=== PATIENT | female | born 1960 | race Caucasian/White ===

== ENCOUNTER 2017-04-20 13:03 | Inpatient (IN) | payer OTHER ==
[2017-04-20] MEDS ORDERED: Sodium Chloride 0.9% 500 ML IV STA ×2 (15:36→19:29)
--- NOTE | 2017-04-20 15:42 | ED PDOC ---
Arrival/HPI - General Time Seen by Provider: 04/20/17 15:35 Historian: Patient - History of Present Illness Narrative History of Present Illness (Text): 04/20/17 15:36 Modesto Sierra is a 56 year old male who presents to the emergency department complaining of RUQ abdominal pain for five days. Patient notes that she has experienced intermittent vomiting that resolved but came back today. Patient went to see her PMD , Dr. Vega, and was prescribed Bentyl to little relief. At present, patient cannot tolerate food. Patient notes that her last bowel movement was more loose than normal. Patient denies any fever or any other complaint at this time. PMD: DR. Vega Time/Duration: < week Symptom Onset: Gradual Symptom Course: Unchanged Activities at Onset: Light Context: Home Past Medical History - Provider Review Nursing Documentation Reviewed: Yes Family/Social History - Physician Review Nursing Documentation Reviewed: Yes Family/Social History: No Known Family HX Allergies/Home Meds Allergies/Adverse Reactions: Allergies No Known Allergies Allergy (Unverified 04/20/17 15:36) Review of Systems - Physician Review All systems were reviewed & negative as marked: Yes - Review of Systems Constitutional: absent: Fevers, Night Sweats Eyes: absent: Vision Changes ENT: absent: Hearing Changes Respiratory: absent: SOB, Cough Cardiovascular: absent: Chest Pain Gastrointestinal: Abdominal Pain (RUQ), Vomiting Musculoskeletal: absent: Arthralgias Skin: absent: Rash, Pruritis Neurological: absent: Headache Endocrine: absent: Diaphoresis Hemo/Lymphatic: absent: Adenopathy Psychiatric: absent: Anxiety Physical Exam Vital Signs Reviewed: Yes Vital Signs Temp Pulse Resp BP Pulse Ox 04/20/17 16:03 98.2 F 86 18 126/69 98 - Systems Exam Head: Present: Atraumatic, Normocephalic Pupils: Present: PERRL Extroacular Muscles: Present: EOMI Conjunctiva: Present: Normal Mouth: Present: Moist Mucous Membranes Neck: Present: Normal Range of Motion Respiratory/Chest: Present: Clear to Auscultation, Good Air Exchange. No: Respiratory Distress, Accessory Muscle Use Cardiovascular: Present: Regular Rate and Rhythm, Normal S1, S2. No: Murmurs Abdomen: Present: Tenderness (RUQ) Back: Present: Normal Inspection Upper Extremity: Present: Normal Inspection. No: Cyanosis, Edema Lower Extremity: Present: Normal Inspection. No: Edema Neurological: Present: GCS=15, CN II-XII Intact, Speech Normal Skin: Present: Warm, Dry, Normal Color. No: Rashes Psychiatric: Present: Alert, Oriented x 3, Normal Insight, Normal Concentration Medical Decision Making ED Course and Treatment: 04/20/17 15:43 Impression: 56 year old male complaining of RUQ abdominal pain for five days. Differential Diagnosis included but are not limited to: Plan: -- Abdominal US -- Urinalysis -- Labs -- Toradol, Zofran, and IV Fluids -- Reassess and disposition Progress Notes: 04/20/17 16:37 EKG shows NSR at 95bpm with normal intervals and no st changes 04/20/17 17:24 Cholelithiasis. Gallbladder sludge. Pericholecystic edema/wall thickening. Negative sonographic Joseph's sign as assessed by the metal pattern maker. Correlate clinically for possibility of cholecystitis. Echogenic liver may be seen in setting of hepatic parenchymal disease or fatty infiltration. 04/20/17 18:32 Persistent pain and vomiting. Gen sx consult. Admit to medicine. General surgery resident aware of patient 04/20/17 20:12 Patient admitted to [facility] in error. Dr. Vasquez at bedside and requesting change attending to Dr. Geraldo Canales - Lab Interpretations Lab Results: 04/20/17 16:20 04/20/17 16:20 Lab Results 04/20/17 17:28: Urine Color Yellow, Urine Appearance Clear, Urine pH 6.5, Ur Specific [place] <= 1.005, Urine Protein Negative, Urine Glucose (UA) Negative, Urine Ketones Negative, Urine Blood Negative, Urine Nitrate Negative, Urine Bilirubin Negative, Urine Urobilinogen 0.2, Ur Leukocyte Esterase Trace H, Urine RBC Negative, Urine WBC 0 - 2, Ur Epithelial Cells 3 - 4, Urine Bacteria Few 04/20/17 16:20: Sodium 141, Potassium 3.9, Chloride 106, Carbon Dioxide 22, Anion Gap 17, BUN 9, Creatinine 0.8, Est GFR ( Amer) > 60, Est GFR (Non- Af Amer) > 60, Random Glucose 144 H, Calcium 9.4, Total Bilirubin 0.7, AST 28, ALT 47, Alkaline Phosphatase 101, Total Protein 7.9, Albumin 4.1, Globulin 3.8, Albumin/Globulin Ratio 1.1, Lipase 32 04/20/17 16:20: WBC 13.8 H, RBC 4.87, Hgb 13.2, Hct 40.0, MCV 82.1, MCH 27.1, MCHC 33.0, RDW 13.6, Plt Count 238, MPV 8.8, Gran % 82.0 H, Lymph % (Auto) 10.1 L, [place] % (Auto) 7.8 H, Eos % (Auto) 0.0 L, Baso % (Auto) 0.1, Gran # 11.29 H, Lymph # (Auto) 1.4, [place] # (Auto) 1.1 H, Eos # (Auto) 0.0, Baso # (Auto) 0.02 - RAD Interpretation Radiology Orders: 04/20/17 15:36 ABDOMEN COMPLETE [US] Stat - Medication Orders Current Medication Orders: Sodium Chloride (Sodium Chloride 0.9%) 100 mls @ 50 mls/hr IV .Q2H KATY Stop: 04/21/17 00:14 Morphine Sulfate (Morphine) 2 mg IVP Q4 PRN PRN Reason: Pain, severe (8-10) Discontinued Medications Sodium Chloride (Sodium Chloride 0.9%) 500 mls @ 999 mls/hr IV .Q31M STA Stop: 04/20/17 16:06 Last Admin: 04/20/17 15:51 Dose: 999 mls/hr eMAR Start Stop Document 04/20/17 15:51 EQ (Rec: 04/20/17 15:51 EQ [id number]) Intravenous Solution Start Date 04/20/17 Start Time 15:51 Sodium Chloride (Sodium Chloride 0.9%) 500 mls @ 999 mls/hr IV .Q31M STA Stop: 04/20/17 19:59 Ketorolac Tromethamine (Toradol) 30 mg IVP STAT STA Stop: 04/20/17 15:37 Last Admin: 04/20/17 15:50 Dose: 30 mg MAR Pain Assessment Document 04/20/17 15:50 EQ (Rec: 04/20/17 15:51 EQ [id number]) Pain Reassessment Is this a pain reassessment? No Sleep Is patient sleeping during reassessment? No Presence of Pain Presence of Pain Yes Pain Scale Used Pain Scale Used Numeric IVP Administration Document 04/20/17 15:50 EQ (Rec: 04/20/17 15:51 EQ [id number]) Charges for Administration # of IVP Administrations 1 Metoclopramide HCl (Reglan) 10 mg IVP STAT STA Stop: 04/20/17 19:30 Morphine Sulfate (Morphine) 4 mg IVP STAT STA Stop: 04/20/17 19:30 Ondansetron HCl (Zofran Inj) 4 mg IVP STAT STA Stop: 04/20/17 15:37 Last Admin: 04/20/17 15:51 Dose: 4 mg IVP Administration Document 04/20/17 15:51 EQ (Rec: 04/20/17 15:51 EQ [id number]) Charges for Administration # of IVP Administrations 1 - Scribe Statement The provider has reviewed the documentation as recorded by the Scribemilio Viera Provider Scribe Attestation: All medical record entries made by the Scribe were at my direction and personally dictated by me. I have reviewed the chart and agree that the record accurately reflects my personal performance of the history, physical exam, medical decision making, and the department course for this patient. I have also personally directed, reviewed, and agree with the discharge instructions and disposition. Disposition/Present on Arrival - Present on Arrival Any Indicators Present on Arrival: No - Disposition Have Diagnosis and Disposition been Completed?: Yes Diagnosis: Cholecystitis Disposition: HOSPITALIZED Disposition Time: 17:28 Patient Plan: Observation Patient Problems: Current Active Problems Problem Status Onset Cholecystitis Acute Condition: FAIR
[2017-04-20 16:28] LABS: BASO # 0.02 K/mm3 (0.0-2.0); BASO % 0.1 % (0.0-3.0); GRAN # 11.29 (1.4-6.5); HEMOGLOBIN 13.2 g/dL (12.0-16.0); LYMPH # 1.4 (1.2-3.4); LYMPH % 10.1 % (22.0-35.0); MEAN CELL VOLUME 82.1 fl (80.0-105.0); MEAN CORPUSCULAR HEMOGLOBIN 27.1 pg (25.0-35.0); MEAN PLATELET VOLUME 8.8 fl (7.0-11.0); MONO # 1.1 (0.1-0.6); MONO % 7.8 % (1.0-6.0); RBC 4.87 10^6/uL (3.5-6.1); RED CELL DISTRIBUTION WIDTH 13.6 % (11.5-14.5); WHITE BLOOD COUNT 13.8 10^3/ul (4.5-11.0)
[2017-04-20 16:39] LABS: ALB/GLOB RATIO 1.1 (1.1-1.8); ALBUMIN 4.1 g/dL (3.0-4.8); ALT/SGPT 47 U/L (7-56); AST/SGOT 28 U/L (14-36); BLOOD UREA NITROGEN 9 mg/dL (7-21); CALCIUM 9.4 mg/dL (8.4-10.5); GFR AFRICAN-AMERICAN > 60; GFR NON-AFRICAN AMERICAN > 60; LIPASE 32 U/L (23-300)
--- NOTE | 2017-04-20 17:25 | US ---
HISTORY: RUQ pain COMPARISON: None available. TECHNIQUE: Sonographic evaluation of the abdomen. FINDINGS: LIVER: Measures 17.0 cm in sagittal dimension. Echogenic liver may be seen in setting of hepatic parenchymal disease or fatty infiltration. No focal hepatic mass identified. The main portal vein appears patent with normal directional flow. No intrahepatic bile duct dilatation. GALLBLADDER: Gallstones. Pericholecystic edema/gallbladder-wall thickening measuring approximately 4 mm. Negative sonographic Joseph's sign as assessed by the livestock nutritionist. COMMON BILE DUCT: Measures 5 mm. PANCREAS: Not well visualized. RIGHT KIDNEY: Measures 9.7 x 4.1 x 3.9 cm. No obstructing calculus or hydronephrosis identified. LEFT KIDNEY: Measures 9.6 x 5.4 x 5.2 cm. No obstructing calculus or hydronephrosis identified. SPLEEN: Measures approximately 9.0 cm. AORTA: Limited views appear unremarkable. IVC: Limited views appear unremarkable. OTHER FINDINGS: None. IMPRESSION: Cholelithiasis. Gallbladder sludge. Pericholecystic edema/wall thickening. Negative sonographic Joseph's sign as assessed by the livestock nutritionist. Correlate clinically for possibility of cholecystitis. Echogenic liver may be seen in setting of hepatic parenchymal disease or fatty infiltration.
[2017-04-20 17:48] LABS: PH,URINE 6.5 (4.7-8.0); URINE BILIRUBIN NEGATIVE (NEGATIVE); URINE BLOOD NEGATIVE (NEGATIVE); URINE GLUCOSE (UA) NEGATIVE (NEGATIVE); URINE LEUKOCYTE ESTERASE TRACE Leu/uL (NEGATIVE); URINE NITRATE NEGATIVE (NEGATIVE); URINE PROTEIN NEGATIVE mg/dL (<30 mg/dL); URINE UROBILINOGEN 0.2 E.U./dL (<1 E.U./dL)
[2017-04-20 17:51] LABS: URINE APPEARANCE CLEAR (CLEAR); URINE COLOR YELLOW (YELLOW)
[2017-04-20 17:59] LABS: URINE BACTERIA FEW (NEG); URINE RBC NEGATIVE /hpf (0-2); URINE WBC 0 - 2 /hpf (0-6)
[2017-04-20] MEDS ORDERED: Morphine 4 mg/ml ISec IVP STA (19:29)
[2017-04-20] MEDS ORDERED: Morphine 2 mg/ml ISec IVP PRN (20:02)
[2017-04-20] MEDS ORDERED: Sodium Chloride 0.9% 100 ML IV SCH (20:15)
--- NOTE | 2017-04-20 21:01 | CP.PCM.CON ---
History of Present Illness - History of Present Illness History of Present Illness: Surgery Consult note. Dr. Salazar 56yo F with PMHx of Arthritis here for evaluation of abdominal pain. Pain is described as sharp, located in the RUQ, does not radiate, waxing and waning for the past 4 days. She denies ever having symptoms such as this before. She went to see her PMD, Dr. Isidoro Tidwell, and was giving Mylanta with minimal relief. She also took some Tylenol and Dayquil this morning with no relief. She started having nausea off and on since the onset of RUQ pain which is associated with food intake. She does report one episode of emesis (non-bloody, non-bilious) today morning soon after she ate breakfast and had some milk tea. Reports Nausea has improved since receiving medications in the ER. Does report feeling feverish at home this morning, denies any current fevers or chills. No CP/SOB. Last food intake was a few hours ago, (lentils and rice, bland). Does report a loose BM earlier today. No melena, no blood. No urinary complaints. Denies any sick contacts. PMD: Isidoro Tidwell (at [facility] [place]) PMHx: Arthritis PSHx: Denies Family Hx: Sister - DM Social Hx: Denies tobacco use, Denies ETOH use, Denies illicit drug use. Lives in [place] with family NKDA Review of Systems - Review of Systems All systems: reviewed and no additional remarkable complaints except - Constitutional Constitutional: Fever. absent: Chills, Headache - Cardiovascular Cardiovascular: absent: Chest Pain, Dyspnea - Respiratory Respiratory: absent: Dyspnea - Gastrointestinal Gastrointestinal: Abdominal Pain, Loose Stools, Nausea, Vomiting. absent: Diarrhea, Melena - Genitourinary Genitourinary: absent: Change in Urinary Stream, Difficulty Urinating, Dysuria - Neurological Neurological: absent: Confusion, Dizziness, Focal Weakness, Headaches Past Patient History - Past Social History Smoking Status: Never Smoked Alcohol: None Drugs: Denies Home Situation {Lives}: With Family - PSYCHIATRIC Hx Substance Use: No - SURGICAL HISTORY Hx Surgeries: No - ANESTHESIA Hx Anesthesia: No Hx Anesthesia Reactions: No Hx Malignant Hyperthermia: No Meds Allergies/Adverse Reactions: Allergies Allergy/AdvReac Type Severity Reaction Status Date / Time No Known Allergies Allergy Unverified 04/20/17 15:36 - Medications Medications: Current Medications Morphine Sulfate (Morphine) 2 mg IVP Q4 PRN PRN Reason: Pain, severe (8-10) Physical Exam - Constitutional Appears: Well, Non-toxic, No Acute Distress - Head Exam Head Exam: ATRAUMATIC, NORMAL INSPECTION, NORMOCEPHALIC - Eye Exam Eye Exam: EOMI, Normal appearance - ENT Exam ENT Exam: Mucous Membranes Moist - Respiratory Exam Respiratory Exam: NORMAL BREATHING PATTERN. absent: Accessory Muscle Use, Respiratory Distress - Cardiovascular Exam Cardiovascular Exam: RRR. absent: JVD - GI/Abdominal Exam GI & Abdominal Exam: Soft. absent: Distended, Firm, Guarding, Rebound, Rigid Additional comments: RUQ tenderness to palpation. Joseph's sign positive. No rebound, no guarding. No visible abdominal scars. - Extremities Exam Extremities exam: Positive for: normal inspection. Negative for: calf tenderness - Neurological Exam Neurological exam: Alert, Oriented x3 - Psychiatric Exam Psychiatric exam: Normal Affect, Normal Mood - Skin Skin Exam: Dry, Intact, Normal Color, Warm Results - Vital Signs Recent Vital Signs: Last Vital Signs Temp 98.2 F 04/20/17 16:03 Pulse 86 04/20/17 16:03 Resp 18 04/20/17 16:03 BP 126/69 04/20/17 16:03 Pulse Ox 98 04/20/17 16:03 - Labs Result Diagrams: 04/20/17 16:20 04/20/17 16:20 Assessment & Plan - Assessment and Plan (Free Text) Assessment: 56yo F with possible cholecystitis - Abd US noted - Leukocytosis. Afebrile - Vital signs stable - Negative UA noted Plan: - NPO except meds - IVF - IV Abx: Rocephin, Flagyl - Pain management - Anti-emetics - AM labs - Pre-op studies - We will plan for OR and make further recs as we follow the patient clinically Further recs as per Dr. Martin Hammonds PGY1 surgery pager: [phone]
--- NOTE | 2017-04-20 21:10 | CP.PCM.HP ---
<Win Valdes - Last Filed: 04/21/17 00:36> History of Present Illness - History of Present Illness History of Present Illness: cc: RUQ abdominal pain HPI: Patient is a 56yo female with history of arthritis and vitamin D deficiency that presents c/o right upper quadrant abdominal pain for the past 5 days. Patient reported that she had never experienced pain like this in the past. She states that the pain has been associated with intermittent nausea and vomiting of ingested food. She reports having been to her PMD, Dr. Isidoro Ashby who instructed her to take mylanta however that provided minimal relief. She decided to come to the emergency room due to the pain which is exacerbated by food. 12point ROS as per HPI above otherwise negative PMHx: arthritis, vitamin d deficiency PSHx: denies Allergies: NKDA Medications: Naproxen occasionally for arthritic pain (~2x per month), Vitamin D supplements Social Hx: denies tobacco, alcohol and illicit drug use; lives with her family Family Hx: Sister: DM PMD: Dr. Isidoro Ashby Present on Admission - Present on Admission Any Indicators Present on Admission: No Past Patient History - Past Social History Smoking Status: Never Smoked - PSYCHIATRIC Hx Substance Use: No - SURGICAL HISTORY Hx Surgeries: No - ANESTHESIA Hx Anesthesia: No Hx Anesthesia Reactions: No Hx Malignant Hyperthermia: No Meds Allergies/Adverse Reactions: Allergies Allergy/AdvReac Type Severity Reaction Status Date / Time No Known Allergies Allergy Unverified 04/20/17 15:36 Physical Exam - Constitutional Appears: No Acute Distress - Head Exam Head Exam: ATRAUMATIC, NORMAL INSPECTION, NORMOCEPHALIC - Eye Exam Eye Exam: EOMI, PERRL - ENT Exam ENT Exam: Mucous Membranes Moist - Neck Exam Neck exam: Positive for: Normal Inspection - Respiratory Exam Respiratory Exam: Clear to Auscultation Bilateral. absent: Rales, Rhonchi, Wheezes - Cardiovascular Exam Cardiovascular Exam: RRR, +S1, +S2. absent: Gallop, Rubs, Systolic Murmur - GI/Abdominal Exam GI & Abdominal Exam: Soft, Tenderness (RUQ tenderness to palpation). absent: Distended, Firm, Guarding, Rebound, Rigid - Extremities Exam Extremities exam: Positive for: normal inspection. Negative for: calf tenderness, pedal edema, tenderness - Neurological Exam Neurological exam: Alert, CN II-XII Intact, Oriented x3 - Psychiatric Exam Psychiatric exam: Normal Affect, Normal Mood - Skin Skin Exam: Dry, Intact, Normal Color, Warm Results - Vital Signs Recent Vital Signs: Last Vital Signs Temp 98.2 F 04/20/17 16:03 Pulse 86 04/20/17 16:03 Resp 18 04/20/17 16:03 BP 126/69 04/20/17 16:03 Pulse Ox 98 04/20/17 16:03 - Labs Result Diagrams: 04/20/17 16:20 04/20/17 16:20 Assessment & Plan - Assessment and Plan (Free Text) Plan: 56yo female with history of arthritis and vitamin d deficiency presents c/o RUQ abdominal pain associated with nausea/vomiting for past 5 days likely secondary to acute cholecystitis vs biliary colic 1. RUQ abdominal pain secondary to acute cholecystitis vs biliary colic -EKG revealed normal sinus rhythm with no acute ST-T wave changes -Abdominal US revealed cholelithiasis, gallbladder sludge, pericholecystic edema /wall thickening; see full report -afebrile, leukocytosis of 13.8 -HIDA scan pending -Troponin negative x1, repeat pending in AM -Started on rocephin and flagyl for antibiotic coverage -Zofran PRN for nausea/vomiting -Morphine 2q4 PRN for pain control -IVF hydration with normal saline -Surgery consulted - Dr. Salazar -GI consulted - Dr. Dickerson 2. GI/DVT prophylaxis -Protonix/SCD's Patient seen and case discussed/reviewed with attending, Dr. Rojo <Simon Rojo Q - Last Filed: 04/21/17 01:02> Results - Vital Signs Recent Vital Signs: Last Vital Signs Temp 98.2 F 04/20/17 16:03 Pulse 86 04/20/17 21:29 Resp 18 04/20/17 21:29 BP 121/65 04/20/17 21:29 Pulse Ox 98 04/20/17 21:29 - Labs Result Diagrams: 04/20/17 16:20 04/20/17 16:20 Labs: Laboratory Results - last 24 hr 04/20/17 23:05 Troponin I < 0.01 Attending/Attestation - Attestation I have personally seen and examined this patient.: Yes I have fully participated in the care of the patient.: Yes I have reviewed all pertinent clinical information: Yes Notes (Text): 04/21/17 01:01 I agree with the above mentioned note and exam by the resident with the addition /exception of the followin56 y/o patient with a PMHx Arthritis and Vit D deficiency presented to the ED with the complaint of abdominal pain coupled with nausea and vomiting for the past 4-5 days. U/S of the abdomen showed gallbladder wall thickening with surrounding edema, combined with her clinical exam is likely secondary to acute cholecystitis. Case discussed with the surgical device sales representative who stated the patient will be planned for surgery during this hospitalization. Will keep her NPO, IVF, anti- emetics and IV Morphine prn pain for now.
[2017-04-20] MEDS: Sodium Chloride 0.9% 1,000 ML IV SCH (23:02)
[2017-04-20] MEDS: metroNIDAZOLE IV 500 mg/100 ml 500 MG/100 ML BAG IVPB SCH (23:23)
[2017-04-21] MEDS ORDERED: Pneumococcal 23-Valent Vaccine IM ONE (02:34)
[2017-04-21] MEDS ORDERED: Influenza Vaccine 60 mcg/0.5 mL SYR (4YR UP) IM ONE (02:34)
[2017-04-21] MEDS: metroNIDAZOLE IV 500 mg/100 ml 500 MG/100 ML BAG IVPB SCH ×3 (05:35→22:16)
[2017-04-21 06:34] LABS: BASO # 0.03 K/mm3 (0.0-2.0); BASO % 0.3 % (0.0-3.0); EOS % 0.1 % (1.5-5.0); GRAN # 7.82 (1.4-6.5); HEMOGLOBIN 11.1 g/dL (12.0-16.0); LYMPH # 1.5 (1.2-3.4); LYMPH % 14.1 % (22.0-35.0); MEAN CELL VOLUME 83.5 fl (80.0-105.0); MEAN CORPUSCULAR HEMOGLOBIN 26.2 pg (25.0-35.0); MEAN CORPUSCULAR HGB CONC 31.4 g/dl (31.0-37.0); MEAN PLATELET VOLUME 8.7 fl (7.0-11.0); MONO % 9.5 % (1.0-6.0); RBC 4.24 10^6/uL (3.5-6.1); WHITE BLOOD COUNT 10.3 10^3/ul (4.5-11.0)
[2017-04-21 07:12] LABS: INR 1.2 (0.93-1.08); PARTIAL THROMBOPLASTIN TIME 27.5 Seconds (25.1-36.5); PROTHROMBIN TIME 13.9 SECONDS (9.4-12.5)
[2017-04-21 07:32] LABS: ALT/SGPT 31 U/L (7-56); AST/SGOT 19 U/L (14-36); BLOOD UREA NITROGEN 8 mg/dL (7-21); CALCIUM 8.3 mg/dL (8.4-10.5); GFR AFRICAN-AMERICAN > 60; GFR NON-AFRICAN AMERICAN > 60
--- NOTE | 2017-04-21 08:24 | RAD ---
HISTORY: Preop COMPARISON: No prior. FINDINGS: LUNGS: No active pulmonary disease. PLEURA: No significant pleural effusion identified, no pneumothorax apparent. CARDIOVASCULAR: Normal. OSSEOUS STRUCTURES: No significant abnormalities. VISUALIZED UPPER ABDOMEN: Normal. OTHER FINDINGS: None. IMPRESSION: No active disease.
--- NOTE | 2017-04-21 10:01 | CARD ---
APPROVED REPORT EKG Measurement Heart [id number] <Conclusion> Normal sinus rhythm RVCD Normal ECG
[2017-04-21 11:16] LABS: TROPONIN I < 0.01 ng/mL
[2017-04-21] MEDS: cefTRIAXone 1 gm 1 GM/100 ML BAG IVPB SCH (11:52)
[2017-04-21] MEDS: Sodium Chloride 0.9% 1,000 ML IV SCH (13:28)
--- NOTE | 2017-04-21 15:38 | CP.PCM.PN ---
<Livia Rosales - Last Filed: 04/21/17 15:34> Subjective - Date & Time of Evaluation Date of Evaluation: 04/21/17 Time of Evaluation: 15:35 - Subjective Subjective: Livia Rosales, PGY1, Medicine Progress Note for Dr Polanco: Patient seen and examined at bedside. Pt admitted overnight for RUQ pain, found to be from gallstones and acute cholecystitis. Reports mild RUQ abdominal pain, improved since admission. Denies fever, chills, nausea, vomiting, yellowing of skin, abdominal pain. Objective - Vital Signs/Intake and Output Vital Signs (last 24 hours): Temp Pulse Resp BP Pulse Ox 99 F 84 20 102/60 98 04/21/17 08:44 04/21/17 08:44 04/21/17 08:44 04/21/17 08:44 04/21/17 08:44 Intake and Output: 04/21/17 04/21/17 06:59 18:59 Intake Total 900 Balance 900 - Medications Medications: Current Medications Metronidazole (Flagyl) 500 mg in 100 mls @ 100 mls/hr IVPB Q8 KATY PRN Reason: Protocol Last Admin: 04/21/17 13:28 Dose: 100 mls/hr Ceftriaxone Sodium (Rocephin 1 Gram Ivpb) 1 gm in 100 mls @ 100 mls/hr IVPB DAILY KATY PRN Reason: Protocol Last Admin: 04/21/17 11:52 Dose: 100 mls/hr Sodium Chloride (Sodium Chloride 0.9%) 1,000 mls @ 120 mls/hr IV .Q8H20M [facility] Last Admin: 04/21/17 13:28 Dose: 120 mls/hr Morphine Sulfate (Morphine) 2 mg IVP Q4 PRN PRN Reason: Pain, severe (8-10) Ondansetron HCl (Zofran Inj) 4 mg IVP Q6H PRN PRN Reason: Nausea/Vomiting Pantoprazole Sodium (Protonix Inj) 40 mg IVP DAILY [facility] Last Admin: 04/21/17 11:52 Dose: 40 mg - Labs Labs: 04/21/17 05:30 04/21/17 05:30 PT 13.9 SECONDS (9.4-12.5) H 04/21/17 05:30 INR 1.20 (0.93-1.08) H 04/21/17 05:30 APTT 27.5 Seconds (25.1-36.5) 04/21/17 05:30 - Constitutional Appears: Non-toxic, No Acute Distress - Head Exam Head Exam: ATRAUMATIC, NORMOCEPHALIC - Eye Exam Eye Exam: EOMI, PERRL. absent: Conjunctival injection, Scleral icterus Pupil Exam: NORMAL ACCOMODATION, PERRL. absent: Fixed, Irregular, Unequal - ENT Exam ENT Exam: Mucous Membranes Moist - Neck Exam Neck Exam: Full ROM - Respiratory Exam Respiratory Exam: Clear to Ausculation Bilateral, NORMAL BREATHING PATTERN. absent: Accessory Muscle Use, Chest Wall Tenderness, Rales, Rhonchi, Wheezes, Respiratory Distress - Cardiovascular Exam Cardiovascular Exam: +S1, +S2. absent: Tachycardia, Murmur - GI/Abdominal Exam GI & Abdominal Exam: Soft, Tenderness (Mild RUQ tenderness), Normal Bowel Sounds. absent: Distended, Mass, Organomegaly, Rebound - Extremities Exam Extremities Exam: Normal Inspection. absent: Calf Tenderness, Pedal Edema - Back Exam Back Exam: NORMAL INSPECTION - Neurological Exam Neurological Exam: Alert, Awake, Oriented x3 - Psychiatric Exam Psychiatric exam: Normal Affect, Normal Mood - Skin Skin Exam: Dry, Normal Color, Warm Assessment and Plan - Assessment and Plan (Free Text) Assessment: 56 yo female with history of arthritis and vitamin d deficiency presents for RUQ abdominal pain associated with nausea/vomiting for past 5 days likely secondary to acute cholecystitis vs biliary colic. Scheduled for lap [place], likely tomorrow. Will keep NPO after midnight: 1. RUQ abdominal pain: secondary to acute cholecystitis vs biliary colic -EKG revealed normal sinus rhythm with no acute ST-T wave changes -Abdominal US revealed cholelithiasis, gallbladder sludge, pericholecystic edema /wall thickening; see full report -afebrile, leukocytosis of 13.8 -Troponin negative x2 -C/w rocephin and flagyl for antibiotic coverage -Zofran PRN for nausea/vomiting -Morphine 2q4 PRN for pain control -IVF hydration with normal saline -Surgery consulted - Dr. Salazar. Appreciate recs. 2. GI/DVT prophylaxis -Protonix/SCD's Patient seen and case discussed/reviewed with attending, Dr Polanco. <Dony Polanco - Last Filed: 04/21/17 16:40> Objective - Vital Signs/Intake and Output Vital Signs (last 24 hours): Temp Pulse Resp BP Pulse Ox 99 F 84 20 102/60 98 04/21/17 08:44 04/21/17 08:44 04/21/17 08:44 04/21/17 08:44 04/21/17 08:44 Intake and Output: 04/21/17 04/21/17 06:59 18:59 Intake Total 900 Balance 900 - Medications Medications: Current Medications Metronidazole (Flagyl) 500 mg in 100 mls @ 100 mls/hr IVPB Q8 KATY PRN Reason: Protocol Last Admin: 04/21/17 13:28 Dose: 100 mls/hr Ceftriaxone Sodium (Rocephin 1 Gram Ivpb) 1 gm in 100 mls @ 100 mls/hr IVPB DAILY [facility] PRN Reason: Protocol Last Admin: 04/21/17 11:52 Dose: 100 mls/hr Sodium Chloride (Sodium Chloride 0.9%) 1,000 mls @ 120 mls/hr IV .Q8H20M [facility] Last Admin: 04/21/17 13:28 Dose: 120 mls/hr Morphine Sulfate (Morphine) 2 mg IVP Q4 PRN PRN Reason: Pain, severe (8-10) Ondansetron HCl (Zofran Inj) 4 mg IVP Q6H PRN PRN Reason: Nausea/Vomiting Pantoprazole Sodium (Protonix Inj) 40 mg IVP DAILY [facility] Last Admin: 04/21/17 11:52 Dose: 40 mg - Labs Labs: 04/21/17 05:30 04/21/17 05:30 PT 13.9 SECONDS (9.4-12.5) H 04/21/17 05:30 INR 1.20 (0.93-1.08) H 04/21/17 05:30 APTT 27.5 Seconds (25.1-36.5) 04/21/17 05:30 Attending/Attestation - Attestation I have personally seen and examined this patient.: Yes I have fully participated in the care of the patient.: Yes I have reviewed all pertinent clinical information, including history, physical exam and plan: Yes Notes (Text): 04/21/17 16:36 56 year old female who presented with RUQ pain. Found to have cholelithiasis, possible acute cholecystitis. Continue with iv fluids, analgesics, antiemetics and antibiotics. Case was discussed with surgery; plan is for lap [place] tomorrow. Family is at bedside and questions were answered. Dony Polanco MD Hospitalist.
--- NOTE | 2017-04-21 19:40 | CP.PCM.PN ---
Subjective - Date & Time of Evaluation Date of Evaluation: 04/21/17 Time of Evaluation: 06:40 - Subjective Subjective: Patient seen and examined this AM. Complains of some persistent pain medication but denies any nausea or vomiting, fevers, or chills. Objective - Vital Signs/Intake and Output Vital Signs (last 24 hours): Temp Pulse Resp BP Pulse Ox 98.7 F 76 18 110/55 L 98 04/21/17 17:08 04/21/17 17:08 04/21/17 17:08 04/21/17 17:08 04/21/17 17:08 - Medications Medications: Current Medications Metronidazole (Flagyl) 500 mg in 100 mls @ 100 mls/hr IVPB Q8 [facility] PRN Reason: Protocol Last Admin: 04/21/17 13:28 Dose: 100 mls/hr Ceftriaxone Sodium (Rocephin 1 Gram Ivpb) 1 gm in 100 mls @ 100 mls/hr IVPB DAILY [facility] PRN Reason: Protocol Last Admin: 04/21/17 11:52 Dose: 100 mls/hr Sodium Chloride (Sodium Chloride 0.9%) 1,000 mls @ 120 mls/hr IV .Q8H20M [facility] Last Admin: 04/21/17 13:28 Dose: 120 mls/hr Morphine Sulfate (Morphine) 2 mg IVP Q4 PRN PRN Reason: Pain, severe (8-10) Last Admin: 04/21/17 18:31 Dose: 2 mg Ondansetron HCl (Zofran Inj) 4 mg IVP Q6H PRN PRN Reason: Nausea/Vomiting Last Admin: 04/21/17 18:31 Dose: 4 mg Pantoprazole Sodium (Protonix Inj) 40 mg IVP DAILY [facility] Last Admin: 04/21/17 11:52 Dose: 40 mg - Labs Labs: 04/21/17 05:30 04/21/17 05:30 PT 13.9 SECONDS (9.4-12.5) H 04/21/17 05:30 INR 1.20 (0.93-1.08) H 04/21/17 05:30 APTT 27.5 Seconds (25.1-36.5) 04/21/17 05:30 - Constitutional Appears: Non-toxic, No Acute Distress - Head Exam Head Exam: ATRAUMATIC, NORMOCEPHALIC - Eye Exam Eye Exam: Normal appearance. absent: Conjunctival injection, Scleral icterus - ENT Exam ENT Exam: Mucous Membranes Moist, Normal Oropharynx - Respiratory Exam Respiratory Exam: NORMAL BREATHING PATTERN. absent: Accessory Muscle Use, Respiratory Distress - Cardiovascular Exam Cardiovascular Exam: RRR - GI/Abdominal Exam GI & Abdominal Exam: Soft, Tenderness (RUQ). absent: Distended Additional comments: negative cates's - Extremities Exam Extremities Exam: absent: Calf Tenderness, Pedal Edema, Tenderness - Neurological Exam Neurological Exam: Alert, Awake, Oriented x3 - Skin Skin Exam: Dry, Normal Color, Warm Assessment and Plan - Assessment and Plan (Free Text) Assessment: 56F with acute cholecystitis Plan: -OR tomorrow PM for cholecystectomy -trend CBC and CMP -NPO after midnight -CLD today -PRN pain and nausea medication -DVT ppx, GI ppx Discussed with Dr. Martin Hanna, PGY2
[2017-04-22] MEDS: Sodium Chloride 0.9% 1,000 ML IV SCH (04:46)
[2017-04-22] MEDS: metroNIDAZOLE IV 500 mg/100 ml 500 MG/100 ML BAG IVPB SCH ×3 (05:24→21:18)
[2017-04-22 07:30] LABS: HEMOGLOBIN 10.4 g/dL (12.0-16.0); MEAN CELL VOLUME 82.7 fl (80.0-105.0); MEAN CORPUSCULAR HEMOGLOBIN 26.4 pg (25.0-35.0); MEAN CORPUSCULAR HGB CONC 31.9 g/dl (31.0-37.0); MEAN PLATELET VOLUME 8.5 fl (7.0-11.0); RBC 3.94 10^6/uL (3.5-6.1); RED CELL DISTRIBUTION WIDTH 13.9 % (11.5-14.5)
[2017-04-22 08:00] LABS: ALBUMIN 2.9 g/dL (3.0-4.8); ALT/SGPT 32 U/L (7-56); AST/SGOT 20 U/L (14-36); BLOOD UREA NITROGEN 8 mg/dL (7-21); CALCIUM 8.3 mg/dL (8.4-10.5); GFR AFRICAN-AMERICAN > 60; GFR NON-AFRICAN AMERICAN > 60
[2017-04-22] MEDS: cefTRIAXone 1 gm 1 GM/100 ML BAG IVPB SCH (09:52)
[2017-04-22] MEDS: Lactated Ringer's 1,000 ML IV SCH (09:52)
[2017-04-22] MEDS ORDERED: Lactated Ringer's 1,000 ML IV SCH (12:30)
[2017-04-22] MEDS ORDERED: HYDROmorphone 1 mg/ml ISec IVP PRN (12:37)
--- NOTE | 2017-04-22 13:03 | CP.PCM.PN ---
<Livia oRsales - Last Filed: 04/22/17 12:59> Subjective - Date & Time of Evaluation Date of Evaluation: 04/22/17 Time of Evaluation: 12:59 - Subjective Subjective: Livia Rosales, PGY1, Medicine Progress Note for Dr Polanco: Patient seen and examined at bedside. Pt had an episode of yellowish emesis this AM. Pt reports mild RUQ abdominal pain, controlled with pain meds. Denies fever, chills, headache, sob, leg swelling. Objective - Vital Signs/Intake and Output Vital Signs (last 24 hours): Temp Pulse Resp BP Pulse Ox 98.6 F 68 20 111/57 L 98 04/22/17 06:00 04/22/17 06:00 04/22/17 06:00 04/22/17 06:00 04/22/17 06:00 Intake and Output: 04/22/17 04/22/17 06:59 18:59 Intake Total 1440 Balance 1440 - Medications Medications: Current Medications Hydromorphone HCl (Dilaudid) 0.5 mg IVP Q15M PRN PRN Reason: Pain, severe (8-10) Stop: 04/22/17 14:27 Metronidazole (Flagyl) 500 mg in 100 mls @ 100 mls/hr IVPB Q8 [facility] PRN Reason: Protocol Last Admin: 04/22/17 05:24 Dose: 100 mls/hr Ceftriaxone Sodium (Rocephin 1 Gram Ivpb) 1 gm in 100 mls @ 100 mls/hr IVPB DAILY [facility] PRN Reason: Protocol Stop: 04/25/17 10:59 Last Admin: 04/22/17 09:52 Dose: 100 mls/hr Lactated Ringer's (Lactated Ringer's) 1,000 mls @ 115 mls/hr IV .Q8H42M [facility] Last Admin: 04/22/17 09:52 Dose: 115 mls/hr Lactated Ringer's (Lactated Ringer's) 1,000 mls @ 75 mls/hr IV .[id number] [facility] Stop: 04/22/17 20:31 Ketorolac Tromethamine (Toradol) 30 mg IVP Q6 PRN PRN Reason: Pain, moderate (4-7) Last Admin: 04/22/17 12:22 Dose: 30 mg Morphine Sulfate (Morphine) 2 mg IVP Q4 PRN PRN Reason: Pain, severe (8-10) Last Admin: 04/21/17 18:31 Dose: 2 mg Ondansetron HCl (Zofran Inj) 4 mg IVP Q6H PRN PRN Reason: Nausea/Vomiting Last Admin: 04/22/17 04:51 Dose: 4 mg Ondansetron HCl (Zofran Inj) 4 mg IVP ONCE PRN PRN Reason: Nausea/Vomiting Pantoprazole Sodium (Protonix Inj) 40 mg IVP DAILY [facility] Last Admin: 04/22/17 09:52 Dose: 40 mg - Labs Labs: 04/22/17 07:00 04/22/17 07:00 PT 13.9 SECONDS (9.4-12.5) H 04/21/17 05:30 INR 1.20 (0.93-1.08) H 04/21/17 05:30 APTT 27.5 Seconds (25.1-36.5) 04/21/17 05:30 - Additional Findings Additional findings: - Constitutional Appears: Non-toxic, No Acute Distress - Head Exam Head Exam: ATRAUMATIC, NORMOCEPHALIC - Eye Exam Eye Exam: EOMI, PERRL. absent: Conjunctival injection, Scleral icterus Pupil Exam: NORMAL ACCOMODATION, PERRL. absent: Fixed, Irregular, Unequal - ENT Exam ENT Exam: Mucous Membranes Moist - Neck Exam Neck Exam: Full ROM - Respiratory Exam Respiratory Exam: Clear to Ausculation Bilateral, NORMAL BREATHING PATTERN. absent: Accessory Muscle Use, Chest Wall Tenderness, Rales, Rhonchi, Wheezes, Respiratory Distress - Cardiovascular Exam Cardiovascular Exam: +S1, +S2. absent: Tachycardia, Murmur - GI/Abdominal Exam GI & Abdominal Exam: Soft, Tenderness (Mild RUQ tenderness), Normal Bowel Sounds. absent: Distended, Mass, Organomegaly, Rebound - Extremities Exam Extremities Exam: Normal Inspection. absent: Calf Tenderness, Pedal Edema - Back Exam Back Exam: NORMAL INSPECTION - Neurological Exam Neurological Exam: Alert, Awake, Oriented x3 - Psychiatric Exam Psychiatric exam: Normal Affect, Normal Mood - Skin Skin Exam: Dry, Normal Color, Warm Assessment and Plan - Assessment and Plan (Free Text) Assessment: 56 yo female with history of arthritis and vitamin d deficiency, admitted for acute cholecysitis. Pt scheduled for lap cholecystectomy per surgery this afternoon. Pt currently NPO, on IV antibiotics/IVF, and adequate pain control: 1. RUQ abdominal pain: secondary to acute cholecystitis vs biliary colic -EKG revealed normal sinus rhythm with no acute ST-T wave changes -Abdominal US revealed cholelithiasis, gallbladder sludge, pericholecystic edema /wall thickening; see full report -afebrile, leukocytosis of 13.8 on admission resolved -Troponin negative x2 -C/w rocephin and flagyl for antibiotic coverage -Zofran PRN for nausea/vomiting -Morphine 2q4 PRN and toradol 30mg q6 for pain control -IVF hydration with normal saline -Surgery consulted - Dr. Salazar. Appreciate recs. 2. GI/DVT prophylaxis -Protonix/SCD's Patient seen and case discussed/reviewed with attending, Dr Polanco. <Dony Polanco - Last Filed: 04/22/17 13:21> Objective - Vital Signs/Intake and Output Vital Signs (last 24 hours): Temp Pulse Resp BP Pulse Ox 98.6 F 68 20 111/57 L 98 04/22/17 06:00 04/22/17 06:00 04/22/17 06:00 04/22/17 06:00 04/22/17 06:00 Intake and Output: 04/22/17 04/22/17 06:59 18:59 Intake Total 1440 Balance 1440 - Medications Medications: Current Medications Hydromorphone HCl (Dilaudid) 0.5 mg IVP Q15M PRN PRN Reason: Pain, severe (8-10) Stop: 04/22/17 14:27 Metronidazole (Flagyl) 500 mg in 100 mls @ 100 mls/hr IVPB Q8 [facility] PRN Reason: Protocol Last Admin: 04/22/17 05:24 Dose: 100 mls/hr Ceftriaxone Sodium (Rocephin 1 Gram Ivpb) 1 gm in 100 mls @ 100 mls/hr IVPB DAILY [facility] PRN Reason: Protocol Stop: 04/25/17 10:59 Last Admin: 04/22/17 09:52 Dose: 100 mls/hr Lactated Ringer's (Lactated Ringer's) 1,000 mls @ 115 mls/hr IV .Q8H42M [facility] Last Admin: 04/22/17 09:52 Dose: 115 mls/hr Lactated Ringer's (Lactated Ringer's) 1,000 mls @ 75 mls/hr IV .[id number] [facility] Stop: 04/22/17 20:31 Ketorolac Tromethamine (Toradol) 30 mg IVP Q6 PRN PRN Reason: Pain, moderate (4-7) Last Admin: 04/22/17 12:22 Dose: 30 mg Morphine Sulfate (Morphine) 2 mg IVP Q4 PRN PRN Reason: Pain, severe (8-10) Last Admin: 04/21/17 18:31 Dose: 2 mg Ondansetron HCl (Zofran Inj) 4 mg IVP Q6H PRN PRN Reason: Nausea/Vomiting Last Admin: 04/22/17 04:51 Dose: 4 mg Ondansetron HCl (Zofran Inj) 4 mg IVP ONCE PRN PRN Reason: Nausea/Vomiting Pantoprazole Sodium (Protonix Inj) 40 mg IVP DAILY [facility] Last Admin: 04/22/17 09:52 Dose: 40 mg - Labs Labs: 04/22/17 07:00 04/22/17 07:00 PT 13.9 SECONDS (9.4-12.5) H 04/21/17 05:30 INR 1.20 (0.93-1.08) H 04/21/17 05:30 APTT 27.5 Seconds (25.1-36.5) 04/21/17 05:30 Attending/Attestation - Attestation I have personally seen and examined this patient.: Yes I have fully participated in the care of the patient.: Yes I have reviewed all pertinent clinical information, including history, physical exam and plan: Yes Notes (Text): 04/22/17 13:20 56 year old female who presented with RUQ pain. Found to have cholelithiasis, possible acute cholecystitis. She had episode of nausea/vomiting overnight. Surgery is following and plan is for lap austin today. Continue with iv fluids, analgesics, antiemetics and antibiotics. She initially had leukocytosis which has improved. Family is at bedside and questions were answered. Dony Polanco MD Hospitalist.
[2017-04-22] MEDS ORDERED: Bupivacaine 0.5% Inj(30mL) ONE (16:24)
[2017-04-22] MEDS ORDERED: Iohexol 240 (50 ml) ONE (16:39)
[2017-04-22] MEDS ORDERED: Propofol 10 mg/ml Inj (20 ML) ONE (16:55)
[2017-04-22] MEDS ORDERED: Midazolam 2 MG/2 ML VIAL ONE (16:56)
[2017-04-22] MEDS ORDERED: Rocuronium 10 mg/ml (5 ml) ONE (16:58)
[2017-04-22] MEDS ORDERED: Sevoflurane - Inhalation Anesthetic Liq (250 ml) ONE (17:18)
[2017-04-22] MEDS ORDERED: Glycopyrrolate 0.2 mg/ml (2ml vial) ONE (18:46)
[2017-04-22] MEDS ORDERED: Neostigmine Methylsulfate 3mg/3ml Syringe IV ONE (18:47)
[2017-04-22] MEDS ORDERED: Liquid Adhesive TOP ONE (19:24)
[2017-04-22] MEDS ORDERED: Oxycodone/Acetaminophen 5/325 mg Tab PO PRN (19:45)
[2017-04-22] MEDS ORDERED: Morphine 2 mg/ml ISec IVP PRN (19:46)
--- NOTE | 2017-04-22 19:47 | PCM.SURG1 ---
Surgeon's Initial Post Op Note - Surgeon's Notes Surgeon: Dr. Salazar Paperboard Boxes Estimator: Dr. Ayers PGY3 Type of Anesthesia: General Endo, Local Pre-Operative Diagnosis: acute on chronic cholecystitis Operative Findings: acutely inflammed gallbladder Post-Operative Diagnosis: same Operation Performed: laparoscopic cholecystectomy Specimen/Specimens Removed: gallbladder, fluid culture Estimated Blood Loss: EBL {In ML}: 50 Blood Products Given: N/A Drains Used: Butch Post-Op Condition: Good Date of Surgery/Procedure: 04/22/17 Time of Surgery/Procedure: 19:47
[2017-04-22] MEDS: HYDROmorphone 0.5 mg/0.5 ml ISec IVP PRN ×2 (19:50→20:00)
[2017-04-22] MEDS ORDERED: HYDROmorphone 1 mg/ml ISec ONE (19:55)
[2017-04-22] MEDS ORDERED: Promethazine DM 6.25 mg-15 mg/5 ml Syrup PO ONE (21:41)
[2017-04-22] MEDS: Morphine 4 mg/ml ISec IVP PRN (22:02)
[2017-04-22] MEDS ORDERED: Mineral Oil/Petrolatum Opht Oint(3.5 gm) OU PRN ×2 (22:08→22:13)
[2017-04-22] MEDS ORDERED: Mineral Oil/Petrolatum Opht Oint(3.5 gm) OU SCH (22:11)
[2017-04-22] MEDS: Lubricant Eye Drops UD OU PRN (22:46)
[2017-04-23] MEDS: Morphine 4 mg/ml ISec IVP PRN ×2 (01:40→05:34)
[2017-04-23] MEDS: metroNIDAZOLE IV 500 mg/100 ml 500 MG/100 ML BAG IVPB SCH ×3 (05:34→22:30)
[2017-04-23] MEDS: Lactated Ringer's 1,000 ML IV SCH ×2 (05:35→17:19)
[2017-04-23 07:17] LABS: HEMOGLOBIN 10.9 g/dL (12.0-16.0); MEAN CELL VOLUME 83.2 fl (80.0-105.0); MEAN CORPUSCULAR HEMOGLOBIN 26.2 pg (25.0-35.0); MEAN CORPUSCULAR HGB CONC 31.5 g/dl (31.0-37.0); MEAN PLATELET VOLUME 9.2 fl (7.0-11.0); RBC 4.16 10^6/uL (3.5-6.1); RED CELL DISTRIBUTION WIDTH 13.9 % (11.5-14.5)
[2017-04-23 07:49] LABS: ALB/GLOB RATIO 1.1 (1.1-1.8); ALT/SGPT 43 U/L (7-56); AST/SGOT 29 U/L (14-36); BLOOD UREA NITROGEN 8 mg/dL (7-21); CALCIUM 8.4 mg/dL (8.4-10.5); GFR AFRICAN-AMERICAN > 60; GFR NON-AFRICAN AMERICAN > 60
[2017-04-23] MEDS: cefTRIAXone 1 gm 1 GM/100 ML BAG IVPB SCH (09:19)
[2017-04-23] MEDS ORDERED: oxyCODONE 5 mg Immediate Release Tab PO PRN (10:10)
--- NOTE | 2017-04-23 10:20 | CP.PCM.PN ---
Subjective - Date & Time of Evaluation Date of Evaluation: 04/23/17 Time of Evaluation: 10:16 - Subjective Subjective: Surgery: Dr. Salazar Pt seen and examined. Resting comfortably in bed. Pain controlled. No N/V. Tolerating CLD. Objective - Vital Signs/Intake and Output Vital Signs (last 24 hours): Temp Pulse Resp BP Pulse Ox 98.9 F 90 18 135/77 100 04/22/17 23:00 04/22/17 23:00 04/22/17 23:00 04/22/17 23:00 04/22/17 23:00 Intake and Output: 04/23/17 04/23/17 06:59 18:59 Intake Total 1120 Output Total 130 Balance 990 - Medications Medications: Current Medications Artificial Tears (Refresh Opth Soln) 0.3 ml OU TID PRN PRN Reason: Dry eyes Last Admin: 04/22/17 22:46 Dose: 0.3 ml Heparin Sodium (Porcine) (Heparin) 5,000 units SC Q12 [facility] PRN Reason: Protocol Last Admin: 04/23/17 09:19 Dose: 5,000 units Metronidazole (Flagyl) 500 mg in 100 mls @ 100 mls/hr IVPB Q8 [facility] PRN Reason: Protocol Last Admin: 04/23/17 05:34 Dose: 100 mls/hr Ceftriaxone Sodium (Rocephin 1 Gram Ivpb) 1 gm in 100 mls @ 100 mls/hr IVPB DAILY [facility] PRN Reason: Protocol Stop: 04/25/17 10:59 Last Admin: 04/23/17 09:19 Dose: 100 mls/hr Lactated Ringer's (Lactated Ringer's) 1,000 mls @ 115 mls/hr IV .Q8H42M [facility] Last Admin: 04/23/17 05:35 Dose: 115 mls/hr Ketorolac Tromethamine (Toradol) 30 mg IVP Q6 PRN PRN Reason: Pain, moderate (4-7) Last Admin: 04/22/17 12:22 Dose: 30 mg Morphine Sulfate (Morphine) 4 mg IVP Q4H PRN PRN Reason: Pain, severe (8-10) Last Admin: 04/23/17 05:34 Dose: 4 mg Ondansetron HCl (Zofran Inj) 4 mg IVP ONCE PRN PRN Reason: Nausea/Vomiting Ondansetron HCl (Zofran Inj) 4 mg IVP Q4H PRN PRN Reason: Nausea/Vomiting Last Admin: 04/23/17 01:43 Dose: 4 mg Pantoprazole Sodium (Protonix Inj) 40 mg IVP DAILY [facility] Last Admin: 04/23/17 09:18 Dose: 40 mg - Labs Labs: 04/23/17 06:00 04/23/17 06:00 PT 13.9 SECONDS (9.4-12.5) H 04/21/17 05:30 INR 1.20 (0.93-1.08) H 04/21/17 05:30 APTT 27.5 Seconds (25.1-36.5) 04/21/17 05:30 - Constitutional Appears: Non-toxic, No Acute Distress - Head Exam Head Exam: ATRAUMATIC, NORMOCEPHALIC - Eye Exam Eye Exam: EOMI - ENT Exam ENT Exam: Mucous Membranes Moist - Neck Exam Neck Exam: Full ROM - Respiratory Exam Respiratory Exam: NORMAL BREATHING PATTERN. absent: Accessory Muscle Use, Respiratory Distress - Cardiovascular Exam Cardiovascular Exam: RRR - GI/Abdominal Exam GI & Abdominal Exam: Soft, Tenderness (per-incisional ). absent: Distended, Firm, Guarding, Rigid, Rebound - Extremities Exam Extremities Exam: absent: Calf Tenderness, Pedal Edema - Neurological Exam Neurological Exam: Alert, Awake, Oriented x3 - Psychiatric Exam Psychiatric exam: Normal Affect, Normal Mood Assessment and Plan - Assessment and Plan (Free Text) Assessment: 56F w. cholecystitis, s/p lap austin, POD#1 -Butch output 130cc/12hr serosang, continue to monitor -will advance diet to HHD -c/w abx -c/w pain management -will start bowel regimen -OOB to chair, encourage ambulation, IS use, PT as tolerated -d/w attending Zemaitis PGY3
[2017-04-23] MEDS: Docusate-Senna 50 mg-8.6 mg Tab PO SCH ×2 (12:24→17:19)
--- NOTE | 2017-04-23 16:27 | CP.PCM.PN ---
<Livia Rosales - Last Filed: 04/23/17 16:18> Subjective - Date & Time of Evaluation Date of Evaluation: 04/23/17 Time of Evaluation: 16:18 - Subjective Subjective: Livia Rosales, PGY1, Medicine Progress Note for Dr Polanco: Patient seen and examined at bedside. No acute events overnight. Denies fever, chills, nausea, vomiting. Reports drinking water and apple juice overnight. Reports mild abdominal pain at incision sites, controlled with pain meds. Objective - Vital Signs/Intake and Output Vital Signs (last 24 hours): Temp Pulse Resp BP Pulse Ox 99.2 F 91 H 20 132/80 99 04/23/17 06:00 04/23/17 06:00 04/23/17 06:00 04/23/17 06:00 04/23/17 06:00 Intake and Output: 04/23/17 04/23/17 06:59 18:59 Intake Total 1120 480 Output Total 130 Balance 990 480 - Medications Medications: Current Medications Artificial Tears (Refresh Opth Soln) 0.3 ml OU TID PRN PRN Reason: Dry eyes Last Admin: 04/22/17 22:46 Dose: 0.3 ml Heparin Sodium (Porcine) (Heparin) 5,000 units SC Q12 [facility] PRN Reason: Protocol Last Admin: 04/23/17 09:19 Dose: 5,000 units Metronidazole (Flagyl) 500 mg in 100 mls @ 100 mls/hr IVPB Q8 [facility] PRN Reason: Protocol Last Admin: 04/23/17 13:14 Dose: 100 mls/hr Ceftriaxone Sodium (Rocephin 1 Gram Ivpb) 1 gm in 100 mls @ 100 mls/hr IVPB DAILY [facility] PRN Reason: Protocol Stop: 04/25/17 10:59 Last Admin: 04/23/17 09:19 Dose: 100 mls/hr Lactated Ringer's (Lactated Ringer's) 1,000 mls @ 115 mls/hr IV .Q8H42M [facility] Last Admin: 04/23/17 05:35 Dose: 115 mls/hr Ketorolac Tromethamine (Toradol) 30 mg IVP Q6 PRN PRN Reason: Pain, moderate (4-7) Last Admin: 04/22/17 12:22 Dose: 30 mg Morphine Sulfate (Morphine) 4 mg IVP Q4H PRN PRN Reason: Pain, severe (8-10) Last Admin: 04/23/17 05:34 Dose: 4 mg Ondansetron HCl (Zofran Inj) 4 mg IVP ONCE PRN PRN Reason: Nausea/Vomiting Ondansetron HCl (Zofran Inj) 4 mg IVP Q4H PRN PRN Reason: Nausea/Vomiting Last Admin: 04/23/17 13:14 Dose: 4 mg Oxycodone HCl (Oxycodone Immediate Release Tab) 5 mg PO Q4 PRN PRN Reason: Pain, Mild (1-3) Pantoprazole Sodium (Protonix Inj) 40 mg IVP DAILY [facility] Last Admin: 04/23/17 09:18 Dose: 40 mg Senna/Docusate Sodium (Senokot S 50 Mg-8.6 Mg) 1 tab PO BID [facility] Last Admin: 04/23/17 12:24 Dose: 1 tab - Labs Labs: 04/23/17 06:00 04/23/17 06:00 PT 13.9 SECONDS (9.4-12.5) H 04/21/17 05:30 INR 1.20 (0.93-1.08) H 04/21/17 05:30 APTT 27.5 Seconds (25.1-36.5) 04/21/17 05:30 - Constitutional Appears: Non-toxic, No Acute Distress - Head Exam Head Exam: ATRAUMATIC, NORMOCEPHALIC - Eye Exam Eye Exam: EOMI, PERRL. absent: Conjunctival injection, Scleral icterus Pupil Exam: NORMAL ACCOMODATION, PERRL. absent: Fixed, Irregular, Unequal - ENT Exam ENT Exam: Mucous Membranes Moist - Neck Exam Neck Exam: Full ROM - Respiratory Exam Respiratory Exam: Clear to Ausculation Bilateral, NORMAL BREATHING PATTERN. absent: Accessory Muscle Use, Chest Wall Tenderness, Wheezes, Respiratory Distress - Cardiovascular Exam Cardiovascular Exam: RRR, +S1, +S2. absent: Murmur - GI/Abdominal Exam GI & Abdominal Exam: Soft, Tenderness (midly tender at incision sites), Normal Bowel Sounds. absent: Distended, Mass, Organomegaly, Rebound Additional comments: + ITZEL tube draining SS fluids, 110 cc/24h - Extremities Exam Extremities Exam: Normal Inspection. absent: Calf Tenderness, Pedal Edema - Back Exam Back Exam: NORMAL INSPECTION - Neurological Exam Neurological Exam: Alert, Awake, Oriented x3 - Psychiatric Exam Psychiatric exam: Normal Affect, Normal Mood - Skin Skin Exam: Dry, Normal Color, Warm Assessment and Plan - Assessment and Plan (Free Text) Assessment: 56 yo female with history of arthritis and vitamin d deficiency, admitted for RUQ abdominal pain, s/p lap cholecystectomy yesterday. Pt still has ITZEL drain in , on liquid diet, on IV antibiotics/IVF, adequate pain control: 1. RUQ abdominal pain: secondary to acute cholecystitis vs biliary colic -EKG revealed normal sinus rhythm with no acute ST-T wave changes -Abdominal US revealed cholelithiasis, gallbladder sludge, pericholecystic edema /wall thickening; see full report -afebrile, leukocytosis of 13.8 on admission resolved -Troponin negative x2 -C/w rocephin and flagyl for antibiotic coverage. Will discuss with surgery regarding PO antibiotics to send pt home. -Zofran PRN for nausea/vomiting -Morphine 2q4 PRN and oxycodone for pain control -IVF hydration with normal saline -Surgery consulted - Dr. Salazar. Appreciate recs. 2. GI/DVT prophylaxis -Protonix/SCD's Dispo: ITZEL drain will be discontinued and discharge, likely tomorrow as per surgery. Patient seen and case discussed/reviewed with attending, Dr Polanco. <Dony Polanco - Last Filed: 04/23/17 16:50> Objective - Vital Signs/Intake and Output Vital Signs (last 24 hours): Temp Pulse Resp BP Pulse Ox 99.2 F 91 H 20 132/80 99 04/23/17 06:00 04/23/17 06:00 04/23/17 06:00 04/23/17 06:00 04/23/17 06:00 Intake and Output: 04/23/17 04/23/17 06:59 18:59 Intake Total 1120 480 Output Total 130 Balance 990 480 - Medications Medications: Current Medications Artificial Tears (Refresh Opth Soln) 0.3 ml OU TID PRN PRN Reason: Dry eyes Last Admin: 04/22/17 22:46 Dose: 0.3 ml Heparin Sodium (Porcine) (Heparin) 5,000 units SC Q12 [facility] PRN Reason: Protocol Last Admin: 04/23/17 09:19 Dose: 5,000 units Metronidazole (Flagyl) 500 mg in 100 mls @ 100 mls/hr IVPB Q8 [facility] PRN Reason: Protocol Last Admin: 04/23/17 13:14 Dose: 100 mls/hr Ceftriaxone Sodium (Rocephin 1 Gram Ivpb) 1 gm in 100 mls @ 100 mls/hr IVPB DAILY [facility] PRN Reason: Protocol Stop: 04/25/17 10:59 Last Admin: 04/23/17 09:19 Dose: 100 mls/hr Lactated Ringer's (Lactated Ringer's) 1,000 mls @ 115 mls/hr IV .Q8H42M [facility] Last Admin: 04/23/17 05:35 Dose: 115 mls/hr Ketorolac Tromethamine (Toradol) 30 mg IVP Q6 PRN PRN Reason: Pain, moderate (4-7) Last Admin: 04/22/17 12:22 Dose: 30 mg Morphine Sulfate (Morphine) 4 mg IVP Q4H PRN PRN Reason: Pain, severe (8-10) Last Admin: 04/23/17 05:34 Dose: 4 mg Ondansetron HCl (Zofran Inj) 4 mg IVP ONCE PRN PRN Reason: Nausea/Vomiting Ondansetron HCl (Zofran Inj) 4 mg IVP Q4H PRN PRN Reason: Nausea/Vomiting Last Admin: 04/23/17 13:14 Dose: 4 mg Oxycodone HCl (Oxycodone Immediate Release Tab) 5 mg PO Q4 PRN PRN Reason: Pain, Mild (1-3) Pantoprazole Sodium (Protonix Inj) 40 mg IVP DAILY [facility] Last Admin: 04/23/17 09:18 Dose: 40 mg Senna/Docusate Sodium (Senokot S 50 Mg-8.6 Mg) 1 tab PO BID [facility] Last Admin: 04/23/17 12:24 Dose: 1 tab - Labs Labs: 04/23/17 06:00 04/23/17 06:00 PT 13.9 SECONDS (9.4-12.5) H 04/21/17 05:30 INR 1.20 (0.93-1.08) H 04/21/17 05:30 APTT 27.5 Seconds (25.1-36.5) 04/21/17 05:30 Attending/Attestation - Attestation I have personally seen and examined this patient.: Yes I have fully participated in the care of the patient.: Yes I have reviewed all pertinent clinical information, including history, physical exam and plan: Yes Notes (Text): 04/23/17 16:48 56 year old female who presented with RUQ pain. Found to have cholelithiasis, possible acute cholecystitis. She is s/p lap austin POD # 1. Continue with iv fluids, analgesics, antiemetics and antibiotics. Her nausea/vomiting has improved. She initially had leukocytosis which also has improved. Continue to advance diet as tolerated as per surgery. Possible d/c planning tomorrow if stable. Family is at bedside and questions were answered. Dony Polanco MD Hospitalist.
[2017-04-24] MEDS: Morphine 4 mg/ml ISec IVP PRN (01:58)
[2017-04-24] MEDS: Lactated Ringer's 1,000 ML IV SCH ×2 (02:02→04:55)
[2017-04-24] MEDS: metroNIDAZOLE IV 500 mg/100 ml 500 MG/100 ML BAG IVPB SCH ×3 (05:07→21:55)
[2017-04-24 06:32] LABS: BASO # 0.01 K/mm3 (0.0-2.0); BASO % 0.1 % (0.0-3.0); EOS % 0.4 % (1.5-5.0); GRAN # 6.55 (1.4-6.5); HEMOGLOBIN 10.2 g/dL (12.0-16.0); LYMPH % 12.3 % (22.0-35.0); MEAN CORPUSCULAR HEMOGLOBIN 26.2 pg (25.0-35.0); MEAN CORPUSCULAR HGB CONC 32.4 g/dl (31.0-37.0); MEAN PLATELET VOLUME 8.9 fl (7.0-11.0); MONO # 0.8 (0.1-0.6); MONO % 9.2 % (1.0-6.0); RBC 3.89 10^6/uL (3.5-6.1); RED CELL DISTRIBUTION WIDTH 13.8 % (11.5-14.5); WHITE BLOOD COUNT 8.4 10^3/ul (4.5-11.0)
[2017-04-24 06:46] LABS: ALB/GLOB RATIO 0.9 (1.1-1.8); ALBUMIN 2.8 g/dL (3.0-4.8); ALT/SGPT 30 U/L (7-56); AST/SGOT 25 U/L (14-36); BLOOD UREA NITROGEN 8 mg/dL (7-21); CALCIUM 8.1 mg/dL (8.4-10.5); GFR AFRICAN-AMERICAN > 60; GFR NON-AFRICAN AMERICAN > 60
--- NOTE | 2017-04-24 08:19 | OP ---
PROCEDURE DATE: 04/22/2017 PREOPERATIVE DIAGNOSES: [id number] cholecystitis and cholelithiasis. POSTOPERATIVE DIAGNOSES: [id number] cholecystitis and cholelithiasis. OPERATION PERFORMED: Laparoscopic cholecystectomy. SURGEON: Go Salazar MD. [employer]ODUCTION MACHINE OPERATOR: Dr. Ayers. DESCRIPTION OF PROCEDURE: In the operating room, patient was identified by name, name of the procedure, laterality, my elliott, consent, noting that the wrist band says a male and she is in fact a female. In any case, I identified this patient, the timeout was successful and the operation proceeded. The abdomen having been prepped and draped, and waiting 3 minutes, the alcohol had resolved and the abdomen was entered through a supraumbilical incision that was dissected down to the fascia. The Veress needle was inserted and the opening pressure was about 4. A 2.5 L were insufflated to a pressure of about 10 and the Visiport was placed the length of this catheter. She was very obese. A xiphoid 5 and two lateral 5's were placed. The gallbladder was distended, it was aspirated removing about 50 mL of muddy obstructed bile. The fundus and then eventually the infundibulum was pulled up. The peritoneum was swept down and exposing the ends of the gallbladder and eventually the real fundus. Rather quickly, the cystic duct was identified, the cystic artery was identified. There was a small band of tissue, probably a small vein in between. These were dissected definitively going into the gallbladder as the only two structures. The peritoneum on either side was swept away, and the view of safety was ascertained. The clamp was able to go entirely behind both the cystic duct and artery without any interference. Cystic duct was doubly clipped as was the artery. A clip was placed on the small little twig. This allowed us to take the gallbladder off the liver bed. It was a very difficult dissection. There was no clear plane most of the time, but it swept away and was burned with the cautery hook, entered the liver several times requiring cautery the gallbladder several times requiring a lot of suction. The contamination was successfully aspirated. Eventually the gallbladder was taken off the liver bed and placed in a bag. The umbilicus was opened a bit to allow removal of the stone. Because of the amount of contamination, a Butch was placed in the right upper quadrant through the old stab and the abdomen was irrigated and dried nicely. The incisions were closed. The wounds injected with Marcaine. Subcuticular stitches of Vicryl, followed by PDS after the umbilicus was closed with mattress stitches of 0 Vicryl. The patient was taken to recovery room in good condition after the sponge and needle counts were declared correct. Go Salazar MD
--- NOTE | 2017-04-24 08:38 | CP.PCM.PN ---
Subjective - Date & Time of Evaluation Date of Evaluation: 04/24/17 Time of Evaluation: 08:32 - Subjective Subjective: Surgery: Dr. Salazar Patient with nausea/vomiting x2 overnight. Denies flatus. Was OOB only twice yesterday. No appetite. Slow with IS use. Pain controlled. Objective - Vital Signs/Intake and Output Vital Signs (last 24 hours): Temp Pulse Resp BP Pulse Ox 99.3 F 70 20 99/68 L 98 04/23/17 16:00 04/24/17 08:10 04/23/17 16:00 04/24/17 08:10 04/23/17 16:00 Intake and Output: 04/24/17 04/24/17 06:59 18:59 Intake Total 2880 120 Output Total 20 Balance 2880 100 - Medications Medications: Current Medications Acetaminophen (Tylenol 325mg Tab) 650 mg PO Q4H PRN PRN Reason: Pain, Mild (1-3) Artificial Tears (Refresh Opth Soln) 0.3 ml OU TID PRN PRN Reason: Dry eyes Last Admin: 04/22/17 22:46 Dose: 0.3 ml Famotidine (Pepcid) 20 mg PO 1000,2200 [facility] Heparin Sodium (Porcine) (Heparin) 5,000 units SC Q12 [facility] PRN Reason: Protocol Last Admin: 04/23/17 22:29 Dose: 5,000 units Metronidazole (Flagyl) 500 mg in 100 mls @ 100 mls/hr IVPB Q8 [facility] PRN Reason: Protocol Last Admin: 04/24/17 05:07 Dose: 100 mls/hr Ceftriaxone Sodium (Rocephin 1 Gram Ivpb) 1 gm in 100 mls @ 100 mls/hr IVPB DAILY [facility] PRN Reason: Protocol Stop: 04/25/17 10:59 Last Admin: 04/23/17 09:19 Dose: 100 mls/hr Potassium Chloride/Dextrose/Sod Cl (Potassium Chl 20 Meq In D5-1/2ns) 1,000 mls @ 115 mls/hr IV .Q8H42M [facility] Ketorolac Tromethamine (Toradol) 30 mg IVP Q6 PRN PRN Reason: Pain, moderate (4-7) Last Admin: 04/23/17 17:15 Dose: 30 mg Ondansetron HCl (Zofran Inj) 4 mg IVP Q4H PRN PRN Reason: Nausea/Vomiting Last Admin: 04/24/17 01:58 Dose: 4 mg Oxycodone HCl (Oxycodone Immediate Release Tab) 5 mg PO Q4 PRN PRN Reason: Pain, Mild (1-3) Senna/Docusate Sodium (Senokot S 50 Mg-8.6 Mg) 1 tab PO BID [facility] Last Admin: 04/23/17 17:19 Dose: Not Given - Labs Labs: 04/24/17 06:00 04/24/17 06:00 PT 13.9 SECONDS (9.4-12.5) H 04/21/17 05:30 INR 1.20 (0.93-1.08) H 04/21/17 05:30 APTT 27.5 Seconds (25.1-36.5) 04/21/17 05:30 - Constitutional Appears: No Acute Distress - Head Exam Head Exam: ATRAUMATIC, NORMOCEPHALIC - Eye Exam Eye Exam: EOMI, Normal appearance - ENT Exam ENT Exam: Mucous Membranes Moist - Respiratory Exam Respiratory Exam: NORMAL BREATHING PATTERN. absent: Respiratory Distress - Cardiovascular Exam Cardiovascular Exam: REGULAR RHYTHM. absent: Tachycardia - GI/Abdominal Exam GI & Abdominal Exam: Soft, Tenderness (lindsey-incisional and RUQ appropriate). absent: Guarding, Rebound Additional comments: dressing CDI with butch in RUQ with 20cc/output in 24 hrs - Neurological Exam Neurological Exam: Alert, Awake - Psychiatric Exam Psychiatric exam: Normal Affect, Normal Mood - Skin Skin Exam: Dry, Normal Color, Warm Assessment and Plan - Assessment and Plan (Free Text) Assessment: 56 y/o female with acute on chronic cholecystitis s/p lap austin POD2 Plan: -patient with n/v, could be developing post op ileus: important for patient to be frequently OOB ambulating, correct electrolytes, encourage IS use -fluids switched to D51/2NSw/20K -avoid opioid analgesics to avoid ileus and possible medication induced n/v -added toradol, tylenol -monitor Butch output -f/u bile culture and pathology -cont abx until culture returns -further recs per Dr. Martin Gonzales PGY3
[2017-04-24] MEDS: cefTRIAXone 1 gm 1 GM/100 ML BAG IVPB SCH (10:02)
[2017-04-24] MEDS: Potassium Ch 20mEq in D5-1/2NS 1,000 ML IV SCH ×2 (10:03→23:57)
[2017-04-24] MEDS: Potassium Chloride 20 mEq ER Tab PO STA ×2 (10:05→10:12)
[2017-04-24] MEDS: Docusate-Senna 50 mg-8.6 mg Tab PO SCH ×2 (10:18→18:55)
--- NOTE | 2017-04-24 11:51 | CP.PCM.PN ---
<Livia Rosales - Last Filed: 04/24/17 11:40> Subjective - Date & Time of Evaluation Date of Evaluation: 04/24/17 Time of Evaluation: 11:40 - Subjective Subjective: Livia Rosales, PGY1, Medicine Progress Note for Dr Polanco: Patient seen and examined at bedside. Pt having 5-6 episodes of bilious emesis overnight, pt not tolerating CLD. C/o of nausea, mild abdominal pain; pt has not passed flatus/has had no BM. Denies fever, chills, leg swelling. Objective - Vital Signs/Intake and Output Vital Signs (last 24 hours): Temp Pulse Resp BP Pulse Ox 98.6 F 83 98 H 155/93 H 20 L 04/24/17 09:55 04/24/17 09:55 04/24/17 09:55 04/24/17 09:55 04/24/17 09:55 Intake and Output: 04/24/17 04/24/17 06:59 18:59 Intake Total 2880 120 Output Total 20 Balance 2880 100 - Medications Medications: Current Medications Acetaminophen (Tylenol 325mg Tab) 650 mg PO Q4H PRN PRN Reason: Pain, Mild (1-3) Artificial Tears (Refresh Opth Soln) 0.3 ml OU TID PRN PRN Reason: Dry eyes Last Admin: 04/22/17 22:46 Dose: 0.3 ml Famotidine (Pepcid) 20 mg PO 1000,2200 [facility] Last Admin: 04/24/17 10:05 Dose: Not Given Heparin Sodium (Porcine) (Heparin) 5,000 units SC Q12 [facility] PRN Reason: Protocol Last Admin: 04/24/17 10:01 Dose: 5,000 units Metronidazole (Flagyl) 500 mg in 100 mls @ 100 mls/hr IVPB Q8 [facility] PRN Reason: Protocol Last Admin: 04/24/17 05:07 Dose: 100 mls/hr Ceftriaxone Sodium (Rocephin 1 Gram Ivpb) 1 gm in 100 mls @ 100 mls/hr IVPB DAILY [facility] PRN Reason: Protocol Stop: 04/25/17 10:59 Last Admin: 04/24/17 10:02 Dose: 100 mls/hr Potassium Chloride/Dextrose/Sod Cl (Potassium Chl 20 Meq In D5-1/2ns) 1,000 mls @ 115 mls/hr IV .Q8H42M [facility] Last Admin: 04/24/17 10:03 Dose: 115 mls/hr Ketorolac Tromethamine (Toradol) 30 mg IVP Q6 PRN PRN Reason: Pain, moderate (4-7) Last Admin: 04/23/17 17:15 Dose: 30 mg Ondansetron HCl (Zofran Inj) 4 mg IVP Q4H PRN PRN Reason: Nausea/Vomiting Last Admin: 04/24/17 09:56 Dose: 4 mg Senna/Docusate Sodium (Senokot S 50 Mg-8.6 Mg) 1 tab PO BID [facility] Last Admin: 04/24/17 10:18 Dose: Not Given - Labs Labs: 04/24/17 06:00 04/24/17 06:00 PT 13.9 SECONDS (9.4-12.5) H 04/21/17 05:30 INR 1.20 (0.93-1.08) H 04/21/17 05:30 APTT 27.5 Seconds (25.1-36.5) 04/21/17 05:30 - Constitutional Appears: Non-toxic, Older Than Stated Age - Head Exam Head Exam: ATRAUMATIC, NORMOCEPHALIC - Eye Exam Eye Exam: EOMI, PERRL. absent: Conjunctival injection, Nystagmus, Scleral icterus Pupil Exam: NORMAL ACCOMODATION, PERRL - ENT Exam ENT Exam: Mucous Membranes Moist - Neck Exam Neck Exam: Full ROM - Respiratory Exam Respiratory Exam: Clear to Ausculation Bilateral. absent: Accessory Muscle Use , Chest Wall Tenderness, Decreased Breath Sounds, Rales, Rhonchi, Wheezes, Stridor - Cardiovascular Exam Cardiovascular Exam: RRR, +S1, +S2. absent: Murmur - GI/Abdominal Exam GI & Abdominal Exam: Soft, Tenderness (Mild TTP at incision sites, ITZEL draining SS fluid, 5ml noted.), Hypoactive Bowel Sounds. absent: Distended, Firm, Rigid , Mass, Organomegaly, Rebound - Extremities Exam Extremities Exam: Normal Inspection. absent: Calf Tenderness, Pedal Edema - Back Exam Back Exam: NORMAL INSPECTION - Neurological Exam Neurological Exam: Alert, Awake, Oriented x3 - Psychiatric Exam Psychiatric exam: Normal Affect, Normal Mood - Skin Skin Exam: Dry, Normal Color, Warm Assessment and Plan - Assessment and Plan (Free Text) Assessment: 56 yo female with history of arthritis and vitamin d deficiency, admitted for RUQ abdominal pain, s/p lap cholecystectomy. Pt had nausea/vomiting episodes overnight, pt not passing pass/no BM yet. Pt NPO, discontinued opioid pain meds , on IV Toradol/tylenol, encouraged ambulation: 1. Abdominal pain/Vomitin/2 recent abdominal surgery vs ileus vs perforation -EKG revealed normal sinus rhythm with no acute ST-T wave changes -Abdominal US revealed cholelithiasis, gallbladder sludge, pericholecystic edema /wall thickening; see full report -afebrile, leukocytosis of 13.8 on admission resolved -Troponin negative x2 -C/w rocephin and flagyl for antibiotic coverage. -Zofran PRN for nausea/vomiting. Added reglan -discontinued morphien and oxycodone. On Toradol and tylenol. -IVF -Obtain abdominal flat plate. -Surgery consulted - Dr. Salazar. Appreciate recs. 2. GI/DVT prophylaxis -Protonix/SCD's Patient seen and case discussed/reviewed with attending, Dr Polanco. <Dony Polanco - Last Filed: 04/24/17 14:14> Objective - Vital Signs/Intake and Output Vital Signs (last 24 hours): Temp Pulse Resp BP Pulse Ox 98.6 F 83 98 H 155/93 H 20 L 04/24/17 09:55 04/24/17 09:55 04/24/17 09:55 04/24/17 09:55 04/24/17 09:55 Intake and Output: 04/24/17 04/24/17 06:59 18:59 Intake Total 2880 120 Output Total 20 Balance 2880 100 - Medications Medications: Current Medications Acetaminophen (Tylenol 325mg Tab) 650 mg PO Q4H PRN PRN Reason: Pain, Mild (1-3) Artificial Tears (Refresh Opth Soln) 0.3 ml OU TID PRN PRN Reason: Dry eyes Last Admin: 04/22/17 22:46 Dose: 0.3 ml Docusate Sodium (Colace) 100 mg PO DAILY [facility] Famotidine (Pepcid) 20 mg PO 1000,2200 [facility] Last Admin: 04/24/17 10:05 Dose: Not Given Heparin Sodium (Porcine) (Heparin) 5,000 units SC Q12 [facility] PRN Reason: Protocol Last Admin: 04/24/17 10:01 Dose: 5,000 units Metronidazole (Flagyl) 500 mg in 100 mls @ 100 mls/hr IVPB Q8 [facility] PRN Reason: Protocol Last Admin: 04/24/17 05:07 Dose: 100 mls/hr Ceftriaxone Sodium (Rocephin 1 Gram Ivpb) 1 gm in 100 mls @ 100 mls/hr IVPB DAILY [facility] PRN Reason: Protocol Stop: 04/25/17 10:59 Last Admin: 04/24/17 10:02 Dose: 100 mls/hr Potassium Chloride/Dextrose/Sod Cl (Potassium Chl 20 Meq In D5-1/2ns) 1,000 mls @ 115 mls/hr IV .Q8H42M [facility] Last Admin: 04/24/17 10:03 Dose: 115 mls/hr Ketorolac Tromethamine (Toradol) 30 mg IVP Q6 PRN PRN Reason: Pain, moderate (4-7) Last Admin: 04/24/17 12:05 Dose: 30 mg Metoclopramide HCl (Reglan) 10 mg IVP ACHS [facility] Ondansetron HCl (Zofran Inj) 4 mg IVP Q4H PRN PRN Reason: Nausea/Vomiting Last Admin: 04/24/17 09:56 Dose: 4 mg Senna/Docusate Sodium (Senokot S 50 Mg-8.6 Mg) 1 tab PO BID [facility] Last Admin: 04/24/17 10:18 Dose: Not Given - Labs Labs: 04/24/17 06:00 04/24/17 06:00 PT 13.9 SECONDS (9.4-12.5) H 04/21/17 05:30 INR 1.20 (0.93-1.08) H 04/21/17 05:30 APTT 27.5 Seconds (25.1-36.5) 04/21/17 05:30 Attending/Attestation - Attestation I have personally seen and examined this patient.: Yes I have fully participated in the care of the patient.: Yes I have reviewed all pertinent clinical information, including history, physical exam and plan: Yes Notes (Text): 04/24/17 14:12 56 year old female who presented with RUQ pain. Found to have cholelithiasis, possible acute cholecystitis. She is s/p lap austin POD # 2. Overnight and this morning she continues to have nausea and vomiting. ?Ileus. Will scale diet back to NPO for now. Abdominal xray is ordered. Surgery follow up requested. Continue with iv fluids, antiemetics and antibiotics. Agree with switching morphine/percocet to toradol/tylenol. Will monitor and advance diet to liquids perhaps later today or tomorrow if symptoms improve. Family is at bedside and questions were answered. Dony Polanco MD Hospitalist.
--- NOTE | 2017-04-24 13:13 | RAD ---
HISTORY: s/p lap austin; nausea/vomiting COMPARISON: No prior comparison available. FINDINGS: BOWEL: There is a nonobstructive bowel gas pattern appreciated. Gas is seen mildly distending a few large greater than small bowel loops. No free intraperitoneal gas is identified or air-fluid level formation. Surgical clips in the right upper quadrant status post prior laparoscopic cholecystectomy apparently. Tubing is seen the right andreas abdomen suggestive of possible surgical drain. Clinically correlate. BONES: Normal. OTHER FINDINGS: None. IMPRESSION: Nonobstructive bowel gas pattern appreciated with surgical clips noted in the right upper quadrant compatible patient's prior history of cholecystectomy. Surgical drain is suspected in the right andreas abdomen. Clinically correlate.
[2017-04-25] MEDS: Potassium Ch 20mEq in D5-1/2NS 1,000 ML IV SCH ×2 (02:15→10:11)
[2017-04-25] MEDS: metroNIDAZOLE IV 500 mg/100 ml 500 MG/100 ML BAG IVPB SCH (05:20)
[2017-04-25 09:26] LABS: BASO # 0.01 K/mm3 (0.0-2.0); BASO % 0.1 % (0.0-3.0); EOS # 0.1 (0.0-0.7); EOS % 1.8 % (1.5-5.0); GRAN # 5.98 (1.4-6.5); GRAN % 75.3 % (50.0-68.0); HEMOGLOBIN 10.8 g/dL (12.0-16.0); LYMPH # 0.9 (1.2-3.4); LYMPH % 10.7 % (22.0-35.0); MEAN CELL VOLUME 80.9 fl (80.0-105.0); MEAN CORPUSCULAR HEMOGLOBIN 26.5 pg (25.0-35.0); MEAN CORPUSCULAR HGB CONC 32.7 g/dl (31.0-37.0); MEAN PLATELET VOLUME 8.6 fl (7.0-11.0); MONO % 12.1 % (1.0-6.0); RBC 4.08 10^6/uL (3.5-6.1); RED CELL DISTRIBUTION WIDTH 13.8 % (11.5-14.5); WHITE BLOOD COUNT 7.9 10^3/ul (4.5-11.0)
[2017-04-25 09:49] LABS: BLOOD UREA NITROGEN 5 mg/dL (7-21)
[2017-04-25] MEDS: Docusate-Senna 50 mg-8.6 mg Tab PO SCH ×3 (10:01→18:01)
[2017-04-25] MEDS: cefTRIAXone 1 gm 1 GM/100 ML BAG IVPB SCH (10:02)
[2017-04-25 10:26] LABS: ALBUMIN 3.2 g/dL (3.0-4.8); ALT/SGPT 37 U/L (7-56); AST/SGOT 23 U/L (14-36); CALCIUM 8.9 mg/dL (8.4-10.5)
[2017-04-25 10:29] LABS: GFR AFRICAN-AMERICAN > 60; GFR NON-AFRICAN AMERICAN > 60
--- NOTE | 2017-04-25 12:11 | CP.PCM.PN ---
Subjective - Date & Time of Evaluation Date of Evaluation: 04/25/17 Time of Evaluation: 07:50 - Subjective Subjective: Patient seen and examined this AM. Patient had repeat episodes of nausea with small amounts of bilious emesis. Patient's son says patient gets anxious for 30min and then vomits, he thinks it may be associated with toradol. Patient's pain remains unchanged, passed a small amount of stool this AM. Drain output minimal serosanguinosu fluid Objective - Vital Signs/Intake and Output Vital Signs (last 24 hours): Temp Pulse Resp BP Pulse Ox 98 F 70 19 153/91 H 70 L 04/25/17 01:41 04/25/17 01:41 04/25/17 01:41 04/25/17 01:41 04/25/17 01:41 Intake and Output: 04/25/17 04/25/17 06:59 18:59 Intake Total 3000 Output Total 5 Balance 2995 - Medications Medications: Current Medications Acetaminophen (Tylenol 325mg Tab) 650 mg PO Q4H PRN PRN Reason: Pain, Mild (1-3) Last Admin: 04/24/17 16:20 Dose: 650 mg Artificial Tears (Refresh Opth Soln) 0.3 ml OU TID PRN PRN Reason: Dry eyes Last Admin: 04/22/17 22:46 Dose: 0.3 ml Docusate Sodium (Colace) 100 mg PO DAILY [facility] Last Admin: 04/25/17 10:02 Dose: 100 mg Famotidine (Pepcid) 20 mg PO 1000,2200 [facility] Last Admin: 04/25/17 10:03 Dose: 20 mg Heparin Sodium (Porcine) (Heparin) 5,000 units SC Q12 [facility] PRN Reason: Protocol Last Admin: 04/25/17 10:03 Dose: 5,000 units Potassium Chloride/Dextrose/Sod Cl (Potassium Chl 20 Meq In D5-1/2ns) 1,000 mls @ 115 mls/hr IV .Q8H42M [facility] Last Admin: 04/25/17 10:11 Dose: 115 mls/hr Ondansetron HCl (Zofran Tab) 4 mg PO Q8H PRN PRN Reason: Nausea/Vomiting Potassium Chloride (Klor-Con 10) 10 meq PO BRK [facility] Senna/Docusate Sodium (Senokot S 50 Mg-8.6 Mg) 1 tab PO BID [facility] Last Admin: 04/25/17 10:03 Dose: 1 tab - Labs Labs: 04/25/17 09:15 04/25/17 09:15 PT 13.9 SECONDS (9.4-12.5) H 04/21/17 05:30 INR 1.20 (0.93-1.08) H 04/21/17 05:30 APTT 27.5 Seconds (25.1-36.5) 04/21/17 05:30 - Constitutional Appears: Non-toxic, No Acute Distress - Head Exam Head Exam: ATRAUMATIC, NORMOCEPHALIC - Eye Exam Eye Exam: Normal appearance. absent: Conjunctival injection, Scleral icterus - ENT Exam ENT Exam: Mucous Membranes Moist, Normal Oropharynx - Respiratory Exam Respiratory Exam: NORMAL BREATHING PATTERN. absent: Accessory Muscle Use, Respiratory Distress - GI/Abdominal Exam GI & Abdominal Exam: Distended (mild), Soft, Tenderness (RUQ and epigastrium) Additional comments: incisions well approximated with steristrips, no swelling, erythema, or drainage - Neurological Exam Neurological Exam: Alert, Awake, Oriented x3 - Psychiatric Exam Psychiatric exam: Anxious, Normal Affect - Skin Skin Exam: Dry, Intact, Normal Color, Warm Assessment and Plan - Assessment and Plan (Free Text) Assessment: 56F POD#3 s/p laparoscopic cholecystectomy for cholecystitis Plan: -D/C trace drain -D/C antibiotics -D/C toradol -Switch to tramadol for pain management -PRN antiemetics -encourage ambulation -FLD as tolerated Seen and discussed with Dr. Martin Hanna, PGY2
[2017-04-25] MEDS ORDERED: Potassium Chloride 10 mEq ER Tab PO SCH (13:30)
--- NOTE | 2017-04-25 15:43 | CP.PCM.PN ---
<Jose Guadalupe Florence - Last Filed: 04/25/17 15:40> Subjective - Date & Time of Evaluation Date of Evaluation: 04/25/17 Time of Evaluation: 15:41 - Subjective Subjective: Medicine Progress Note: Patient seen and evaluated at bedside. Patient and nursing staff note one episode of bilious vomiting overnight and difficulty sleeping, which was resolved with one dose of ativan. Patient reports no change in her abdominal pain. She denies fever, chills, headache, chest pain, SOB, diarrhea, constipation, urinary symptoms, skin changes or any numbness/tingling/weakness of any extremity. Objective - Vital Signs/Intake and Output Vital Signs (last 24 hours): Temp Pulse Resp BP Pulse Ox 98.5 F 75 20 145/95 H 99 04/25/17 06:00 04/25/17 06:00 04/25/17 06:00 04/25/17 06:00 04/25/17 06:00 Intake and Output: 04/25/17 04/25/17 06:59 18:59 Intake Total 3000 Output Total 5 Balance 2995 - Medications Medications: Current Medications Acetaminophen (Tylenol 325mg Tab) 650 mg PO Q4H PRN PRN Reason: Pain, Mild (1-3) Last Admin: 04/24/17 16:20 Dose: 650 mg Artificial Tears (Refresh Opth Soln) 0.3 ml OU TID PRN PRN Reason: Dry eyes Last Admin: 04/22/17 22:46 Dose: 0.3 ml Docusate Sodium (Colace) 100 mg PO DAILY [facility] Last Admin: 04/25/17 10:02 Dose: 100 mg Famotidine (Pepcid) 20 mg PO 1000,2200 [facility] Last Admin: 04/25/17 10:03 Dose: 20 mg Heparin Sodium (Porcine) (Heparin) 5,000 units SC Q12 [facility] PRN Reason: Protocol Last Admin: 04/25/17 10:03 Dose: 5,000 units Potassium Chloride/Dextrose/Sod Cl (Potassium Chl 20 Meq In D5-1/2ns) 1,000 mls @ 115 mls/hr IV .Q8H42M [facility] Last Admin: 04/25/17 10:11 Dose: 115 mls/hr Ondansetron HCl (Zofran Tab) 4 mg PO Q8H PRN PRN Reason: Nausea/Vomiting Last Admin: 04/25/17 12:23 Dose: 4 mg Senna/Docusate Sodium (Senokot S 50 Mg-8.6 Mg) 1 tab PO BID [facility] Last Admin: 04/25/17 10:03 Dose: 1 tab Tramadol HCl (Ultram) 50 mg PO TID PRN PRN Reason: Pain, moderate (4-7) - Labs Labs: 04/25/17 09:15 04/25/17 09:15 PT 13.9 SECONDS (9.4-12.5) H 04/21/17 05:30 INR 1.20 (0.93-1.08) H 04/21/17 05:30 APTT 27.5 Seconds (25.1-36.5) 04/21/17 05:30 - Constitutional Appears: Non-toxic, Older Than Stated Age - Head Exam Head Exam: ATRAUMATIC, NORMOCEPHALIC - Eye Exam Eye Exam: EOMI, Normal appearance, PERRL Pupil Exam: NORMAL ACCOMODATION, PERRL - ENT Exam ENT Exam: Mucous Membranes Moist, Normal Exam - Neck Exam Neck Exam: Full ROM, Normal Inspection. absent: Lymphadenopathy - Respiratory Exam Respiratory Exam: Clear to Ausculation Bilateral, NORMAL BREATHING PATTERN. absent: Respiratory Distress - Cardiovascular Exam Cardiovascular Exam: REGULAR RHYTHM, RRR, +S1, +S2. absent: Tachycardia - GI/Abdominal Exam GI & Abdominal Exam: Distended (Mild), Soft, Tenderness (Epigastric and RUQ regions), Diminished Bowel Sounds. absent: Normal Bowel Sounds - Extremities Exam Extremities Exam: Full ROM, Normal Capillary Refill, Normal Inspection. absent : Calf Tenderness, Joint Swelling - Back Exam Back Exam: NORMAL INSPECTION - Neurological Exam Neurological Exam: Alert, Awake, CN II-XII Intact, Oriented x3 - Psychiatric Exam Psychiatric exam: Normal Affect, Normal Mood - Skin Skin Exam: Dry, Intact, Normal Color, Warm Assessment and Plan - Assessment and Plan (Free Text) Assessment: 56 year old female with a past medical history significant for arthritis and vitamin d deficiency who was admitted for RUQ abdominal pain s/p lap cholecystectomy (POD#3). Patient had one episode of nausea/vomiting overnight. Plan: 1. Post-Operative N/V and Constipation -Abdominal X-Ray showed nonobstructive bowel gas pattern -Currently afebrile and without leukocytosis, tachycardia or tachypnea -Continue with Senokot and Colace -Continue with PRN Zofran for N/V -Continue Tylenol and Tramadol for pain control -Continue D5/Half NS with KCl at 115mls/hr -Advanced to Low Fat Full Liquid Diet -Surgery consulted, all recommendations appreciated 2. Eye Irritation -Continue Refresh Opth Solution GI Prophylaxis: Pepcid DVT Prophylaxis: Heparin and SCD's Patient seen and case discussed with attending, Dr Polanco. <Dony Polanco - Last Filed: 04/25/17 16:22> Objective - Vital Signs/Intake and Output Vital Signs (last 24 hours): Temp Pulse Resp BP Pulse Ox 98.5 F 75 20 145/95 H 99 04/25/17 06:00 04/25/17 06:00 04/25/17 06:00 04/25/17 06:00 04/25/17 06:00 Intake and Output: 04/25/17 04/25/17 06:59 18:59 Intake Total 3000 Output Total 5 Balance 2995 - Medications Medications: Current Medications Acetaminophen (Tylenol 325mg Tab) 650 mg PO Q4H PRN PRN Reason: Pain, Mild (1-3) Last Admin: 04/24/17 16:20 Dose: 650 mg Artificial Tears (Refresh Opth Soln) 0.3 ml OU TID PRN PRN Reason: Dry eyes Last Admin: 04/22/17 22:46 Dose: 0.3 ml Docusate Sodium (Colace) 100 mg PO DAILY [facility] Last Admin: 04/25/17 10:02 Dose: 100 mg Famotidine (Pepcid) 20 mg PO 1000,2200 [facility] Last Admin: 04/25/17 10:03 Dose: 20 mg Heparin Sodium (Porcine) (Heparin) 5,000 units SC Q12 [facility] PRN Reason: Protocol Last Admin: 04/25/17 10:03 Dose: 5,000 units Potassium Chloride/Dextrose/Sod Cl (Potassium Chl 20 Meq In D5-1/2ns) 1,000 mls @ 115 mls/hr IV .Q8H42M [facility] Last Admin: 04/25/17 10:11 Dose: 115 mls/hr Ondansetron HCl (Zofran Tab) 4 mg PO Q8H PRN PRN Reason: Nausea/Vomiting Last Admin: 04/25/17 16:15 Dose: 4 mg Senna/Docusate Sodium (Senokot S 50 Mg-8.6 Mg) 1 tab PO BID [facility] Last Admin: 04/25/17 10:03 Dose: 1 tab Tramadol HCl (Ultram) 50 mg PO TID PRN PRN Reason: Pain, moderate (4-7) - Labs Labs: 04/25/17 09:15 04/25/17 09:15 PT 13.9 SECONDS (9.4-12.5) H 04/21/17 05:30 INR 1.20 (0.93-1.08) H 04/21/17 05:30 APTT 27.5 Seconds (25.1-36.5) 04/21/17 05:30 Attending/Attestation - Attestation I have personally seen and examined this patient.: Yes I have fully participated in the care of the patient.: Yes I have reviewed all pertinent clinical information, including history, physical exam and plan: Yes Notes (Text): 04/25/17 16:19 56 year old female who presented with RUQ pain. Found to have cholelithiasis, possible acute cholecystitis. She is s/p lap austin POD # 3. Her abdominal pain has improved although she still complains of intermittent nausea and vomiting. Abdominal xray was reviewed. Continue with zofran prn and protonix. Toradol has been switched to tramadol and antibiotics have been discontinued. Surgery is following. Continue with full liquid diet as tolerated. Continue with colace and senakot. Will replete and repeat potassium for hypokalemia. Son is at bedside and questions were answered. Dony Polanco MD Hospitalist.
[2017-04-25] MEDS ORDERED: POTASSIUM CH IV SCH (20:31)
[2017-04-25] MEDS ORDERED: POTASSIUM CHLORIDE IV SCH (20:31)
[2017-04-25] MEDS ORDERED: [UNRECOGNIZED DRUG - OTHER] IV SCH (20:31)
[2017-04-25] MEDS ORDERED: D5 IV SCH (20:31)
[2017-04-25] MEDS ORDERED: Potassium Ch 20mEq in D5-1/2NS 1,000 ML IV SCH (20:45)
[2017-04-25] MEDS ORDERED: Potassium Chl 40 mEq in D5-1/2 1,000 ML IV SCH (22:00)
[2017-04-26 09:23] LABS: BASO # 0.02 K/mm3 (0.0-2.0); BASO % 0.3 % (0.0-3.0); EOS # 0.1 (0.0-0.7); EOS % 1.5 % (1.5-5.0); GRAN # 5.82 (1.4-6.5); GRAN % 73.2 % (50.0-68.0); HEMOGLOBIN 11.3 g/dL (12.0-16.0); LYMPH # 1.4 (1.2-3.4); LYMPH % 17.3 % (22.0-35.0); MEAN CELL VOLUME 80.9 fl (80.0-105.0); MEAN CORPUSCULAR HEMOGLOBIN 26.3 pg (25.0-35.0); MEAN CORPUSCULAR HGB CONC 32.6 g/dl (31.0-37.0); MEAN PLATELET VOLUME 8.9 fl (7.0-11.0); MONO # 0.6 (0.1-0.6); MONO % 7.7 % (1.0-6.0); RBC 4.29 10^6/uL (3.5-6.1); RED CELL DISTRIBUTION WIDTH 13.7 % (11.5-14.5); WHITE BLOOD COUNT 7.9 10^3/ul (4.5-11.0)
[2017-04-26 09:43] VITALS: BP 143/89; PULSE 78; RESP 19; TEMP 99.7; O2SAT 99
[2017-04-26 09:43] LABS: ALB/GLOB RATIO 1.1 (1.1-1.8); ALBUMIN 3.1 g/dL (3.0-4.8); ALT/SGPT 28 U/L (7-56); AST/SGOT 23 U/L (14-36); BLOOD UREA NITROGEN 5 mg/dL (7-21); CALCIUM 9.2 mg/dL (8.4-10.5); GFR AFRICAN-AMERICAN > 60; GFR NON-AFRICAN AMERICAN > 60; MAGNESIUM 1.9 mg/dL (1.7-2.2)
[2017-04-26] MEDS: Docusate-Senna 50 mg-8.6 mg Tab PO SCH (10:52)
[2017-04-26] MEDS: Lubricant Eye Drops UD OU PRN (10:58)
--- NOTE | 2017-04-26 11:33 | CP.PCM.PN ---
Subjective - Date & Time of Evaluation Date of Evaluation: 04/26/17 Time of Evaluation: 11:29 - Subjective Subjective: Surgery: Dr. Salazar Pt seen and examined. Resting comfortably in bed. N/V resolved. Tolerated diet. Pain controlled. Objective - Vital Signs/Intake and Output Vital Signs (last 24 hours): Temp Pulse Resp BP Pulse Ox 99.7 F H 78 19 143/89 99 04/26/17 06:00 04/26/17 06:00 04/26/17 06:00 04/26/17 06:00 04/26/17 06:00 Intake and Output: 04/26/17 04/26/17 06:59 18:59 Intake Total 480 Output Total 400 Balance 80 - Medications Medications: Current Medications Acetaminophen (Tylenol 325mg Tab) 650 mg PO Q4H PRN PRN Reason: Pain, Mild (1-3) Last Admin: 04/24/17 16:20 Dose: 650 mg Artificial Tears (Refresh Opth Soln) 0.3 ml OU TID PRN PRN Reason: Dry eyes Last Admin: 04/26/17 10:58 Dose: 0.3 ml Docusate Sodium (Colace) 100 mg PO DAILY [facility] Last Admin: 04/26/17 10:52 Dose: 100 mg Famotidine (Pepcid) 20 mg PO 1000,2200 [facility] Last Admin: 04/26/17 10:52 Dose: 20 mg Heparin Sodium (Porcine) (Heparin) 5,000 units SC Q12 [facility] PRN Reason: Protocol Last Admin: 04/26/17 10:53 Dose: Not Given Potassium Chloride/Dextrose/Sod Cl (Potassium Chl 40 Meq In D5-1/2ns) 1,000 mls @ 115 mls/hr IV .Q8H42M [facility] Last Admin: 04/26/17 05:20 Dose: 115 mls/hr Ondansetron HCl (Zofran Tab) 4 mg PO Q8H PRN PRN Reason: Nausea/Vomiting Last Admin: 04/25/17 16:15 Dose: 4 mg Senna/Docusate Sodium (Senokot S 50 Mg-8.6 Mg) 1 tab PO BID [facility] Last Admin: 04/26/17 10:52 Dose: 1 tab Tramadol HCl (Ultram) 50 mg PO TID PRN PRN Reason: Pain, moderate (4-7) - Labs Labs: 04/26/17 09:00 04/26/17 09:00 PT 13.9 SECONDS (9.4-12.5) H 04/21/17 05:30 INR 1.20 (0.93-1.08) H 04/21/17 05:30 APTT 27.5 Seconds (25.1-36.5) 04/21/17 05:30 - Constitutional Appears: Non-toxic, No Acute Distress - Head Exam Head Exam: ATRAUMATIC, NORMOCEPHALIC - Eye Exam Eye Exam: EOMI - ENT Exam ENT Exam: Mucous Membranes Moist - Neck Exam Neck Exam: Full ROM - Respiratory Exam Respiratory Exam: NORMAL BREATHING PATTERN. absent: Accessory Muscle Use, Respiratory Distress - GI/Abdominal Exam GI & Abdominal Exam: Soft. absent: Distended, Firm, Guarding, Rigid, Tenderness - Extremities Exam Extremities Exam: absent: Calf Tenderness, Pedal Edema - Neurological Exam Neurological Exam: Alert, Awake, Oriented x3 - Psychiatric Exam Psychiatric exam: Normal Affect, Normal Mood - Skin Skin Exam: Dry, Normal Color, Warm Assessment and Plan - Assessment and Plan (Free Text) Assessment: 56F w. cholecystitis, s/p lap [place] POD#4 -Pt clear for D/C from surgical standpoint -Diet and activity as tolerated -No need for abx -F/U outpt in 1 week -If concerns arise call office or return to ED -d/w attending Zemaitis PGY3
--- NOTE | 2017-04-26 18:11 | CP.PCM.DIS ---
<Jose Guadalupe Florence - Last Filed: 04/26/17 18:04> Provider - Provider Date of Admission: 04/21/17 15:46 Attending physician: Dony Polanco MD Primary care physician: Isidoro Ashby MD Consults: Surgery: Martin Time Spent in preparation of Discharge (in minutes): 46 Hospital Course - Lab Results Lab Results: Micro Results 04/23/17 08:26 Bile Body Fluid Culture - Preliminary NO GROWTH AFTER 3 DAYS Most Recent Lab Values WBC 7.9 10^3/ul (4.5-11.0) 04/26/17 09:00 RBC 4.29 10^6/uL (3.5-6.1) 04/26/17 09:00 Hgb 11.3 g/dL (12.0-16.0) L 04/26/17 09:00 Hct 34.7 % (36.0-48.0) L 04/26/17 09:00 MCV 80.9 fl (80.0-105.0) 04/26/17 09:00 MCH 26.3 pg (25.0-35.0) 04/26/17 09:00 MCHC 32.6 g/dl (31.0-37.0) 04/26/17 09:00 RDW 13.7 % (11.5-14.5) 04/26/17 09:00 Plt Count 328 10^3/uL (120.0-450.0) 04/26/17 09:00 MPV 8.9 fl (7.0-11.0) 04/26/17 09:00 Gran % 73.2 % (50.0-68.0) H 04/26/17 09:00 Lymph % (Auto) 17.3 % (22.0-35.0) L 04/26/17 09:00 [place] % (Auto) 7.7 % (1.0-6.0) H 04/26/17 09:00 Eos % (Auto) 1.5 % (1.5-5.0) 04/26/17 09:00 Baso % (Auto) 0.3 % (0.0-3.0) 04/26/17 09:00 Gran # 5.82 (1.4-6.5) 04/26/17 09:00 Lymph # (Auto) 1.4 (1.2-3.4) 04/26/17 09:00 [place] # (Auto) 0.6 (0.1-0.6) 04/26/17 09:00 Eos # (Auto) 0.1 (0.0-0.7) 04/26/17 09:00 Baso # (Auto) 0.02 K/mm3 (0.0-2.0) 04/26/17 09:00 PT 13.9 SECONDS (9.4-12.5) H 04/21/17 05:30 INR 1.20 (0.93-1.08) H 04/21/17 05:30 APTT 27.5 Seconds (25.1-36.5) 04/21/17 05:30 Sodium 141 mmol/L (132-148) 04/26/17 09:00 Potassium 3.7 mmol/L (3.6-5.0) 04/26/17 09:00 Chloride 103 mmol/L (98-107) 04/26/17 09:00 Carbon Dioxide 26 mmol/L (21-33) 04/26/17 09:00 Anion Gap 17 (10-20) 04/26/17 09:00 BUN 5 mg/dL (7-21) L 04/26/17 09:00 Creatinine 0.5 mg/dl (0.7-1.2) L 04/26/17 09:00 Est GFR ( Amer) > 60 04/26/17 09:00 Est GFR (Non-Af Amer) > 60 04/26/17 09:00 POC Glucose (mg/dL) 97 mg/dL (65-110) 04/24/17 10:29 Random Glucose 173 mg/dL (70-110) H 04/26/17 09:00 Calcium 9.2 mg/dL (8.4-10.5) 04/26/17 09:00 Phosphorus 2.5 mg/dL (2.5-4.5) 04/26/17 09:00 Magnesium 1.9 mg/dL (1.7-2.2) 04/26/17 09:00 Total Bilirubin 0.2 mg/dL (0.2-1.3) 04/26/17 09:00 AST 23 U/L (14-36) 04/26/17 09:00 ALT 28 U/L (7-56) 04/26/17 09:00 Alkaline Phosphatase 84 U/L (38-126) 04/26/17 09:00 Troponin I < 0.01 ng/mL 04/21/17 05:30 Total Protein 6.0 g/dL (5.8-8.3) 04/26/17 09:00 Albumin 3.1 g/dL (3.0-4.8) 04/26/17 09:00 Globulin 2.8 gm/dL 04/26/17 09:00 Albumin/Globulin Ratio 1.1 (1.1-1.8) 04/26/17 09:00 Lipase 32 U/L (23-300) 04/20/17 16:20 Urine Color Yellow (YELLOW) 04/20/17 17:28 Urine Appearance Clear (CLEAR) 04/20/17 17:28 Urine pH 6.5 (4.7-8.0) 04/20/17 17:28 Ur Specific [place] <= 1.005 (1.005-1.035) 04/20/17 17:28 Urine Protein Negative mg/dL (<30 mg/dL) 04/20/17 17:28 Urine Glucose (UA) Negative mg/dL (NEGATIVE) 04/20/17 17:28 Urine Ketones Negative mg/dL (NEGATIVE) 04/20/17 17:28 Urine Blood Negative (NEGATIVE) 04/20/17 17:28 Urine Nitrate Negative (NEGATIVE) 04/20/17 17:28 Urine Bilirubin Negative (NEGATIVE) 04/20/17 17:28 Urine Urobilinogen 0.2 E.U./dL (<1 E.U./dL) 04/20/17 17:28 Ur Leukocyte Esterase Trace Ifeoma/uL (NEGATIVE) H 04/20/17 17:28 Urine RBC Negative /hpf (0-2) 04/20/17 17:28 Urine WBC 0 - 2 /hpf (0-6) 04/20/17 17:28 Ur Epithelial Cells 3 - 4 /hpf (0-5) 04/20/17 17:28 Urine Bacteria Few (NEG) 04/20/17 17:28 Urine HCG, Qual Negative (NEGATIVE) 04/22/17 02:10 - Hospital Course Hospital Course: 56 y/o patient with a PMHx Arthritis and Vit D deficiency presented to the ED with the complaint of abdominal pain coupled with nausea and vomiting for the past 4-5 days. U/S of the abdomen showed gallbladder wall thickening with surrounding edema. Surgery was consulted. Patient was started on NPO diet, IVF, anti-emetics and IV Morphine prn for pain. Patient was taken for cholecystectomy by surgery and this was done without complication. A ITZEL drain was used. Patient was started on Rocpehin and Flagyl for empiric coverage. Patient had difficulty with advancement of her diet and experienced several days of N/V. An abdominal x-ray showed non-obstructive bowel gas pattern. This resolved and patient was noted to have no difficulty with soft regular diet on POD #5. Patient remained afebrile and HDS post operatively and was discharged home on 04/26/17 with instructions to follow up with her PMD and Dr. Salazar as an outpatient. Patient was sent home with wound care instructions, wound care supplies and zofran for N/V. - Date & Time of H&P Date of H&P: 04/20/17 Time of H&P: 21:04 Discharge Exam - Head Exam Head Exam: ATRAUMATIC, NORMOCEPHALIC - Eye Exam Eye Exam: EOMI, Normal appearance, PERRL - ENT Exam ENT Exam: Mucous Membranes Moist - Neck Exam Neck exam: Full Rom - Respiratory Exam Respiratory Exam: Clear to PA & Lateral, NORMAL BREATHING PATTERN, UNREMARKABLE - Cardiovascular Exam Cardiovascular Exam: REGULAR RHYTHM, RRR, +S1, +S2 - GI/Abdominal Exam GI & Abdominal Exam: Normal Bowel Sounds, Unremarkable Additional comments: Wound dressings clean, dry and intact - Extremities Exam Extremities exam: full ROM, normal capillary refill, normal inspection - Back Exam Back exam: NORMAL INSPECTION - Neurological Exam Neurological exam: Alert, CN II-XII Intact, Normal Gait, Oriented x3, Reflexes Normal - Psychiatric Exam Psychiatric exam: Normal Affect, Normal Mood - Skin Skin Exam: Dry, Intact, Normal Color, Warm Discharge Plan - Discharge Medications Prescriptions: Ondansetron ODT [Zofran ODT] 4 mg PO Q6 PRN #10 odt PRN Reason: Nausea/Vomiting - Follow Up Plan Condition: FAIR Disposition: HOME/ ROUTINE Instructions: Cholecystitis (DC) Additional Instructions: Please follow up with your primary care doctor within one week Please avoid food/meals high in fat Please take all medications as prescribed Should your symptoms worsen or persist, please seek emergency medical attention Referrals: Isidoro Ashby MD [Primary Care Provider] - <Dony Polanco - Last Filed: 04/27/17 09:14> Provider - Provider Date of Admission: 04/21/17 15:46 Attending physician: Dony Polanco MD Primary care physician: Isidoro Ashby MD Hospital Course - Lab Results Lab Results: Micro Results 04/23/17 08:26 Bile Body Fluid Culture - Preliminary NO GROWTH AFTER 3 DAYS Most Recent Lab Values WBC 7.9 10^3/ul (4.5-11.0) 04/26/17 09:00 RBC 4.29 10^6/uL (3.5-6.1) 04/26/17 09:00 Hgb 11.3 g/dL (12.0-16.0) L 04/26/17 09:00 Hct 34.7 % (36.0-48.0) L 04/26/17 09:00 MCV 80.9 fl (80.0-105.0) 04/26/17 09:00 MCH 26.3 pg (25.0-35.0) 04/26/17 09:00 MCHC 32.6 g/dl (31.0-37.0) 04/26/17 09:00 RDW 13.7 % (11.5-14.5) 04/26/17 09:00 Plt Count 328 10^3/uL (120.0-450.0) 04/26/17 09:00 MPV 8.9 fl (7.0-11.0) 04/26/17 09:00 Gran % 73.2 % (50.0-68.0) H 04/26/17 09:00 Lymph % (Auto) 17.3 % (22.0-35.0) L 04/26/17 09:00 [place] % (Auto) 7.7 % (1.0-6.0) H 04/26/17 09:00 Eos % (Auto) 1.5 % (1.5-5.0) 04/26/17 09:00 Baso % (Auto) 0.3 % (0.0-3.0) 04/26/17 09:00 Gran # 5.82 (1.4-6.5) 04/26/17 09:00 Lymph # (Auto) 1.4 (1.2-3.4) 04/26/17 09:00 [place] # (Auto) 0.6 (0.1-0.6) 04/26/17 09:00 Eos # (Auto) 0.1 (0.0-0.7) 04/26/17 09:00 Baso # (Auto) 0.02 K/mm3 (0.0-2.0) 04/26/17 09:00 PT 13.9 SECONDS (9.4-12.5) H 04/21/17 05:30 INR 1.20 (0.93-1.08) H 04/21/17 05:30 APTT 27.5 Seconds (25.1-36.5) 04/21/17 05:30 Sodium 141 mmol/L (132-148) 04/26/17 09:00 Potassium 3.7 mmol/L (3.6-5.0) 04/26/17 09:00 Chloride 103 mmol/L (98-107) 04/26/17 09:00 Carbon Dioxide 26 mmol/L (21-33) 04/26/17 09:00 Anion Gap 17 (10-20) 04/26/17 09:00 BUN 5 mg/dL (7-21) L 04/26/17 09:00 Creatinine 0.5 mg/dl (0.7-1.2) L 04/26/17 09:00 Est GFR ( Amer) > 60 04/26/17 09:00 Est GFR (Non-Af Amer) > 60 04/26/17 09:00 POC Glucose (mg/dL) 97 mg/dL (65-110) 04/24/17 10:29 Random Glucose 173 mg/dL (70-110) H 04/26/17 09:00 Calcium 9.2 mg/dL (8.4-10.5) 04/26/17 09:00 Phosphorus 2.5 mg/dL (2.5-4.5) 04/26/17 09:00 Magnesium 1.9 mg/dL (1.7-2.2) 04/26/17 09:00 Total Bilirubin 0.2 mg/dL (0.2-1.3) 04/26/17 09:00 AST 23 U/L (14-36) 04/26/17 09:00 ALT 28 U/L (7-56) 04/26/17 09:00 Alkaline Phosphatase 84 U/L (38-126) 04/26/17 09:00 Troponin I < 0.01 ng/mL 04/21/17 05:30 Total Protein 6.0 g/dL (5.8-8.3) 04/26/17 09:00 Albumin 3.1 g/dL (3.0-4.8) 04/26/17 09:00 Globulin 2.8 gm/dL 04/26/17 09:00 Albumin/Globulin Ratio 1.1 (1.1-1.8) 04/26/17 09:00 Lipase 32 U/L (23-300) 04/20/17 16:20 Urine Color Yellow (YELLOW) 04/20/17 17:28 Urine Appearance Clear (CLEAR) 04/20/17 17:28 Urine pH 6.5 (4.7-8.0) 04/20/17 17:28 Ur Specific [place] <= 1.005 (1.005-1.035) 04/20/17 17:28 Urine Protein Negative mg/dL (<30 mg/dL) 04/20/17 17:28 Urine Glucose (UA) Negative mg/dL (NEGATIVE) 04/20/17 17:28 Urine Ketones Negative mg/dL (NEGATIVE) 04/20/17 17:28 Urine Blood Negative (NEGATIVE) 04/20/17 17:28 Urine Nitrate Negative (NEGATIVE) 04/20/17 17:28 Urine Bilirubin Negative (NEGATIVE) 04/20/17 17:28 Urine Urobilinogen 0.2 E.U./dL (<1 E.U./dL) 04/20/17 17:28 Ur Leukocyte Esterase Trace Ifeoma/uL (NEGATIVE) H 04/20/17 17:28 Urine RBC Negative /hpf (0-2) 04/20/17 17:28 Urine WBC 0 - 2 /hpf (0-6) 04/20/17 17:28 Ur Epithelial Cells 3 - 4 /hpf (0-5) 04/20/17 17:28 Urine Bacteria Few (NEG) 04/20/17 17:28 Urine HCG, Qual Negative (NEGATIVE) 04/22/17 02:10 Attending/Attestation - Attestation I have personally seen and examined this patient.: Yes I have fully participated in the care of the patient.: Yes I have reviewed all pertinent clinical information, including history, physical exam and plan: Yes Notes (Text): 04/26/17 56 year old female who presented with RUQ pain. Found to have cholelithiasis, possible acute cholecystitis. She is s/p lap [place] POD # 4. Her abdominal pain has improved and her nausea/vomiting resolved. Her diet is advanced which she is tolerating. Son is at bedside and questions were answered. Patient is discharged home to follow up with pmd and surgery. Dony Polanco MD Hospitalist.
== END 2017-04-26 13:50 | disposition home or self-care (01) | DRG 493 ==
LOC: ED 13:03 → ERH 18:31 → 3RNO 04-21 01:49 → OBSVTOIN 04-21 15:46 → 3RNO 04-22 21:14
PROVIDERS: ADMIT Hospitalist; ATTEND Internal Medicine
PROC: 0FT44ZZ Resection of Gallbladder, Percutaneous Endoscopic Approach (ICD-10-PCS; principal; 2017-04-22 17:00)
DX: K80.12 Calculus of gallbladder with acute and chronic cholecystitis without obstruction (principal); E87.6 Hypokalemia; E55.9 Vitamin D deficiency, unspecified; Z83.3 Family history of diabetes mellitus; M19.90 Unspecified osteoarthritis, unspecified site; K59.00 Constipation, unspecified